=== PATIENT | male | born 1960 | race Caucasian/White ===

== ENCOUNTER 2022-10-06 15:22 | Outpatient (CLI) | payer BC, SELFPAY ==
--- NOTE | ~2022-10-06 | US_ITS ---
EXAMINATION: US soft tissue UE RT DATE: 10/06/2022 16:02 INDICATION: Nodules at the right second and third digits TECHNIQUE: Multiple grayscale and Doppler ultrasound images of the region of concern at the right trinh d the level of the distal metacarpals were obtained. COMPARISON: None FINDINGS: The relatively similar appearing very hypoechoic lesions at the dorsal aspect of the second and third proximal phalanges. The lesions demonstrate multiple tiny internal echogenic foci but with prominent posterior acoustic enhancement cystic lesions with internal echogenic material estimate. The lesion dorsal to the second proximal phalanx measures 9 x 9 x 6 mm and is situated between the skin surface and the underlying extensor tendon. The lesion posterior to the third middle phalanx has a bilobed/pe anut-shaped configuration measuring 1.3 cm proximal to distal and 7 x 5 mm in maximal transaxial dime nsions. It is also centered between the skin surface and the deeper extensor tendon. The lesions do n ot appear to surround the extensor tendons as would be expected for fluid in the tendon sheaths. No d iscernible neck extending to the joint space. There is no evident internal vascular flow at either le miri on color Doppler. IMPRESSION: 1. A couple small complex appearing cystic lesions along the dorsal aspect of the second and third pr oximal phalanges with most likely differential including tendon sheath cysts, ganglion cysts and locu lated tenosynovitis. Abscess or hematoma could also be included in the appropriate clinical setting. Reviewed, dictated and finalized at location A. IMPRESSION: 1. A couple small complex appearing cystic lesions along the dorsal aspect of t he second and third proximal phalanges with most likely differential including tendon sheath cysts, ganglion cysts and loculated tenosynovitis. Abscess or hem atoma could also be included in the appropriate clinical setting.
== END 2022-10-06 15:23 | disposition home or self-care (01) ==
PROVIDERS: PCP Family Medicine; Visit Provider Physician Assistant
DX: R22.31 Localized swelling, mass and lump, right upper limb (principal)
CPT/HCPCS: 76882

== ENCOUNTER 2025-03-24 11:43 | Observation (INO) | payer OTHER, SELFPAY ==
[2025-03-24] VITALS (13 sets, daily range): BP systolic 108–193; BP diastolic 72–132; PULSE 83–98; RESP 14–20; TEMP 36–36.9; O2SAT 96–100; BMI 29.5
--- NOTE | ~2025-03-24 | CT_ITS ---
EXAMINATION: CT abdomen pelvis wo con, 03/24/2025 14:40 CDT HISTORY: L flank to LLQ pain; h/o stones COMPARISON: No comparisons available. TECHNIQUE: CT scan of the abdomen and pelvis was performed without IV contrast. One or more of the following dose reduction techniques were used: automated exposure control, adjustment of the mA and/or kV according to patient size, use of iterative reconstruction technique. Unless otherwise stated, incidental findings do not require dedicated follow up imaging FINDINGS: CT abdomen: LUNG BASES: The lung bases are clear. The visualized portions of the heart and pericardium are unremarkable. LIVER: Mild hepatic steatosis. SPLEEN: Unremarkable, no splenomegaly. KIDNEYS: Right Kidney: Right kidney renal calculi the largest mid pole 4 x 5 mm, mild hydronephrosis and hydroureter degenerative obstructing proximal ureteral calculus measuring 4 x 5 x 4 mm. Left Kidney: Left kidney severe hydronephrosis and hydroureter, calculus mid pole 3 mm with obstructing mid ureteral calculus measuring 4 x 3 x 4 mm. Within the distal left ureter there is a second calculus measuring 4 x 5 x 5 mm. ADRENAL GLANDS: Unremarkable. PANCREAS: Unremarkable. GALLBLADDER/BILIARY: Unremarkable. No biliary dilatation. STOMACH AND ESOPHAGUS: Visualized stomach and esophagus within normal limits. BOWEL/MESENTERY: Moderate fecal content. No colitis or diverticulitis. Appendix normal. Mesentery normal. No thickening or dilated loops of small bowel. ADENOPATHY/RETROPERITONEUM: No lymphadenopathy. AORTA/VASCULATURE: Normal caliber aorta. FREE FLUID OR FREE AIR: No free fluid.. CT pelvis: SOLID ORGANS/REPRODUCTIVE: Prostate enlarged correlate with PSA. BLADDER: Within normal limits. OSSEOUS STRUCTURES: No acute osseous abnormality.No suspicious lesions. OVERLYING SOFT TISSUES: Unremarkable. IMPRESSION: 1. Bilateral obstructive uropathy Reviewed, dictated and finalized at location P.
--- NOTE | ~2025-03-24 | XR_ITS ---
EXAMINATION: XR retrograde pyelo w/stent BI DATE: 03/24/2025 17:35 INDICATION: Bilateral obstructive uropathy TECHNIQUE: 5 fluoroscopic images of the abdomen and pelvis were obtained during procedure performed by 03/25/2025. Radiologist was not present for the imaging or procedure. The amount of fluoroscopy time used during this procedure was 1.3 minutes. Total DAP was 1.53 mGym^2. COMPARISON: CT dated 03/24/2025 FINDINGS: No change in position of stones in the proximal right ureter and distal left ureter can be seen on the clipper operator imaging. Subsequent images demonstrate cannulation and retrograde contrast injection into the bilateral renal collecting systems which appears normal on the right than with mild hydronephrosis on the left. There is been placement of bilateral intraureteral stents the proximal loops of each are positioned within the bilateral renal pelvises. IMPRESSION: 1. Bilateral ureteral stones with interval placement of bilateral internal ureteral stents which are in expected position. It is unclear whether the ureteral stones have been removed and would correlate with procedure note for further detail. Reviewed, dictated and finalized at location A. IMPRESSION: 1. Bilateral ureteral stones with interval placement of bilateral internal uret eral stents which are in expected position. It is unclear whether the ureteral stones have been removed and would correlate with procedure note for further de tail.
--- NOTE | 2025-03-24 13:59 | ED.ABDPAIN ---
HPI - Abdominal Pain General Chief Complaint: Abdominal Pain Stated Complaint: abd pain since , constipation Time Seen by Provider: 03/24/25 13:46 History of Present Illness HPI narrative: Since , patient has been having pain to her his left back going to his groin, feels like kidney stones, he has been trying keep hydrated, but he has also been having nausea and not been able have a bowel movement. Related Data Allergies Allergy/AdvReac Type Severity Reaction Status Date / Time hydrochlorothiazide Allergy Unknown cough/lip Verified 03/24/25 13:48 (Zestoretic) swelling lisinopril Allergy Unknown cough/lip Verified 03/24/25 13:48 swelling Review of Systems Review of Systems: All systems reviewed & are unremarkable except as noted in HPI and below PMFSH Past Medical History Medical History History of angioedema HLD (hyperlipidemia) Diabetes mellitus Family History Family History Grandparent Diabetes mellitus Sibling Diabetes mellitus Father Depression Family history of suicide, Onset Age: 25 Mother Patient's mother is in good health Social History Social History Smoking packs per day: 1 Smoking cigarettes per day: 20.0 Years smoked: 25 Smoking pack-years: 25.00 Smoking status: Former smoker Tobacco type: cigarettes Smoking end date: 10/14/24 Alcohol intake: current Drinks per week: 4 Substance use: never Substance use type: does not use Do You Feel Safe in your Home?: Yes Lack of Transportation: No Lack of Food: Never True Current Housing: I Have Housing Concerned About Future Housing: No Difficulty Paying Gas/Electric Bills: No Difficulty Paying for Meds: No Currently Unemployed: No Education: Don't Know Difficulty w/ Childcare or Family Care: No Living arrangements: alone Occupation/Education: occupation Gender identity (if verbalized by the patient): Male Sexual Orientation (if Verbalized by the Patient): Straight or Heterosexual Exam Narrative: EXAMINATION OF ORGAN SYSTEMS/BODY AREAS: Constitutional: Vital signs per nursing GENERAL: Appears quite uncomfortable from pain HEAD: Normal with no signs of head trauma. EYES: EOMI, conjunctiva normal ENT: Hearing grossly intact LUNGS: Nonlabored breathing. HEART: [Regular rate and rhythm] ABD: [Soft], tender to palpation left lower quadrant EXT: Normal range of motion SKIN: [No rashes or lesions.] NEURO: [Alert and oriented x 3. No gross focal sensory or strength deficits.] PSYCH: Normal affect Course Vital Signs Vital signs: Vital Signs Temperature 97.8 F 03/24/25 11:48 Pulse Rate 97 03/24/25 11:48 Respiratory Rate 20 03/24/25 11:48 Blood Pressure 166/100 H 03/24/25 11:48 Pulse Oximetry 100 03/24/25 11:48 Oxygen Delivery Room Air 03/24/25 11:48 Temperature 97.8 F 03/24/25 11:48 Pulse Rate 83 03/24/25 15:04 Respiratory Rate 15 03/24/25 15:04 Blood Pressure 192/132 H 03/24/25 15:04 Pulse Oximetry 100 03/24/25 15:04 Oxygen Delivery Room Air 03/24/25 11:48 MDM - Abdominal Pain MDM Narrative Medical decision making narrative: Patient presenting here with left flank pain going to the lower abdomen, has history of kidney stones and this feels similar. Also having some nausea constipation. I do see stone left mid ureter causing hydroureter and hydronephrosis, despite pain medicine patient is still having significant pain, spine I do feel he will need to be admitted for pain control and intervention, discussed with urologist who will see the patient. Discussed with hospitalist for admission I discussed with patient and family the plan they are comfortable CT does show bilateral obstructive uropathy, started on antibiotics, urologist is updated. Lab Data 03/24/25 13:58 03/24/25 13:58 Labs: Lab Results 03/24/25 03/24/25 Range/Units 13:46 13:58 WBC 14.9 H (4.5-10.0) K/mm3 RBC 5.75 (4.6-6.20) M/mm3 Hgb 17.2 (14.0-18.0) g/dL Hct 48.5 (42.0-52.0) % MCV 84.3 (80-100) fl MCH 29.9 (26-34) pg MCHC 35.5 (32-36) g/dl RDW 11.9 (11.5-14.5) % Plt Count 247 (150-375) k/mm3 MPV 10.0 (7.4-10.4) fl Immature Gran % (Auto) 0.4 (0-0.5) % Neut % (Auto) 86.9 H (45.5-73.1) % Lymph % (Auto) 7.0 L (18.3-44.2) % [place] % (Auto) 5.2 (2.6-8.5) % Eos % (Auto) 0.3 (0-4.4) % Baso % (Auto) 0.2 (0.2-1.2) % Lymph # (Auto) 1.05 (0.9-3.2) K/mm3 [place] # (Auto) 0.8 H (0.1-0.6) K/mm3 Eos # (Auto) 0.0 (0-0.3) K/mm3 Baso # (Auto) 0.0 (0.0-0.1) K/mm3 Abs Immat Gran (auto) 0.06 H (0.00-0.031) K/mm3 Absolute Neuts (auto) 13.0 H (1.3-6.7) K/mm3 Absolute Nucleated RBC 0.000 (0.0-0.012) K/mm3 Nucleated RBC % 0.0 (0.0-0.2) % Sodium 135 L (137-145) mmol/L Potassium 4.3 (3.4-5.0) mmol/L Chloride 100 (98-107) mmol/L Carbon Dioxide 23 (22-30) mmol/L Anion Gap 12 (4-12) mmol/L BUN 19 (9-20) mg/dL Creatinine 1.19 (0.7-1.3) mg/dL Estim Creat Clear Calc 65 ml/min Estimated GFR > 60 (59 - ) Glucose 156 H (65-110) mg/dL POC Capillary Glucose 159 H (65-105) mg/dl Calcium 10.0 (8.4-10.2) mg/dL Total Bilirubin 0.7 (0.2-1.3) mg/dL AST 30 (17-59) U/L ALT 28 (6-50) U/L Alkaline Phosphatase 84 (38-126) U/L Total Protein 9.0 H (6.3-8.2) g/dL Albumin 4.9 (3.5-5.1) g/dL Lipase 403 H (23-300) U/L Urine Color Yellow (Yellow) Urine Appearance Clear (Clear) Urine pH 5.5 (5.0-9.0) Ur Specific [place] 1.035 (1.001-1.035) Urine Protein Trace (Negative) mg/dL Urine Glucose (UA) 3+ H (Negative) mg/dL Urine Ketones Trace H (Negative) mg/dL Ur Blood (Man) 3+ H (Negative) Urine Nitrate Negative (Negative) Urine Bilirubin Negative (Negative) Urine Urobilinogen 0.2 (<2.0) mg/dL Leukocyte Esterase Rfl Negative (Negative) GEOR[place]IE/UL Urine RBC >100 H (0-2) /hpf Urine WBC 0-5 (0-3) /hpf Ur Squamous Epith Cells None seen (Few) /hpf Urine Bacteria None seen /hpf Urine Casts 0-2 Imaging Data Radiologist's impression: ITS Impressions Abdomen/Pelvis CT 03/24/25 15:19 IMPRESSION: 1. Bilateral obstructive uropathy Discharge Plan Discharge Clinical Impression: Acute bilateral obstructive uropathy Patient Disposition: Still a Patient Condition: Stable Patient Language: Macanese Prescriptions: No Action metformin 500 mg tablet extended release 24 hr 1,000 mg PO DAILY Qty: 360 2RF pravastatin 20 mg tablet See Rx Instructions .ROUTE .COMPLEX Qty: 90 3RF Dose Instruction: TAKE 1 TABLET BY MOUTH EVERYDAY AT BEDTIME Rx Instructions: TAKE 1 TABLET BY MOUTH EVERYDAY AT BEDTIME tirzepatide 10 mg/0.5 mL pen injector 10 mg subcut WEEKLY Qty: 6 1RF fluticasone propionate 50 mcg/actuation spray,suspension 2 spray intranasal DAILY Qty: 16 3RF Rx Instructions: administer into each nostril bupropion HCl 150 mg tablet extended release 24 hr See Rx Instructions .ROUTE .COMPLEX Qty: 90 2RF Dose Instruction: TAKE 1 TABLET BY MOUTH EVERY DAY IN THE MORNING Rx Instructions: TAKE 1 TABLET BY MOUTH EVERY DAY IN THE MORNING losartan 50 mg tablet 50 mg PO DAILY Qty: 90 2RF metoprolol succinate 100 mg tablet extended release 24 hr See Rx Instructions .ROUTE .COMPLEX Qty: 90 2RF Dose Instruction: TAKE 1 TABLET BY MOUTH EVERY DAY Rx Instructions: TAKE 1 TABLET BY MOUTH EVERY DAY Follow-up/Referrals: Corbin Wallace MD [Primary Care Provider, [facility]]
[2025-03-24] MEDS: ONDANSETRON INJ 4 MG/2 ML VIAL IV PUSH (14:02)
[2025-03-24 14:04] LABS: Hematocrit 48.5 % (42.0-52.0); Hemoglobin 17.2 g/dL (14.0-18.0); Immature Granulocyte Percent A 0.4 % (0-0.5); Lymphocytes Absolute Auto 1.05 K/mm3 (0.9-3.2); Mean Corpuscular HGB Conc 35.5 g/dl (32-36); Mean Corpuscular Hemoglobin 29.9 pg (26-34); Mean Corpuscular Volume 84.3 fl (80-100); Nucleated Red Blood Cells Absolute Auto 0.000 K/mm3 (0.0-0.012); Nucleated Red Blood Cells Perc 0.0 % (0.0-0.2); Platelet Count Result 247 k/mm3 (150-375); Red Blood Count 5.75 M/mm3 (4.6-6.20); White Blood Count 14.9 K/mm3 (4.5-10.0)
[2025-03-24] MEDS: MORPHINE SULFATE (*CRX) 4 MG/ML INJ IV PUSH (14:06)
--- OUTSIDE RECORDS SUMMARY | 2025-03-24 14:06 | XMS_ITS | Clinical Summary ---
Author Organization [facility] Address [address] [place] [address] Phone Care Team Providers Care Global Regulatory Lead Name Role Phone Unavailable Primary Care Provider Unavailabl e Allergies No known active allergies Medications metoprolol succinate (TOPROL XL) 100 mg Extended Release 24 hour tablet Take 100 mg by mouth daily. Active cyanocobalamin 1,000 mcg Tablet Take 1,000 mcg by mouth daily. Active buPROPion HCl (WELLBUTRIN SR) 150 mg Sustained Release 12 hour tablet Take 150 mg by mouth 2 times daily. Active losartan (COZAAR) 50 mg tablet Take 50 mg by mouth daily. Active metFORMIN (GLUCOPHAGE) 500 mg tablet Take 500 mg by mouth 2 times daily with meals. Active Active Problems Problem Noted Date Diagnosed Date Hep C w/o coma, chronic 12/31/2015 Family History Medical History Relation Name Comments Celiac Disease Neg Hx Colon Cancer Neg Hx Colon Polyps Neg Hx Crohn's Disease Neg Hx GERD Neg Hx Gastric Cancer Neg Hx Inflammatory Bowel Disease Neg Hx Kidney Disease Neg Hx Pancreatic Cancer Neg Hx Rectal Cancer Neg Hx Stomach Cancer Neg Hx Ulcerative Colitis Neg Hx Ulcers Neg Hx Social History Tobacco Use Types Packs/Day Years Used Date Smoking Tobacco: Every Day Cigarettes Smokeless Tobacco: Never Alcohol Use Standard Drinks/Week Comments No 0 (1 standard drink = 0.6 oz pur e alcohol) socially Sex and Gender Information Value Date Recorded Sex Assigned at Not on file Legal Sex Male 8:17 AM CDT Gender Identity Not on file Sexual Orientation Not on file Last Filed Vital Signs Vital Sign Reading Time Taken Comments Blood Pressure 134/89 04/09/2016 12:15 PM CDT Pulse 61 04/09/2016 12:15 PM CDT Temperature 36.9 C (98.4 F) 04/09/2016 6:26 AM CDT Respiratory Rate 16 04/09/2016 12:15 PM CDT Oxygen Saturation 97% 04/09/2016 12:15 PM CDT Inhaled Oxygen Concentration - - Weight 102.1 kg (225 lb) 04/09/2016 6:26 AM CDT Height 180.3 cm (5' 11) 04/09/2016 6:26 AM CDT Body Mass Index 31.38 04/09/2016 6:26 AM CDT Plan of Treatment Health Maintenance Due Date Last Done Comments DTAP/TDAP/TD VACCINES (1 - Tdap) 09/30/1979 COLORECTAL SCREENING 2005 Colorectal Cancer Screening 2005 FIT-DNA Q 3 years 2005 FIT/FOBT Q 1 year 2005 Flex Sig/CT Colonography Q 5 years 2005 ZOSTER VACCINE (1 of 2) 2010 RSV VACCINE (60+ or ) (1 - Risk 60-74 years 1-dose series) 2020 INFLUENZA VACCINE (#1) [address] [facility] BLUE ACCESS/TRUE BLUE PPO
--- OUTSIDE RECORDS SUMMARY | 2025-03-24 14:06 | XMS_ITS | Clinical Summary ---
Author Organization [facility] Address [address] [place] [address] Care Team Providers Care Director Digital Name Role Phone Alanna Grove MD Primary Care Provider [phone] Source Comments [facility],non-owned Affiliates and Associated Physician Practices is amultiple site organization consisting of ambulatory clinics and hospital sitesin [place], [place], [place] and [place]. This disclosure is being madepursuant to the Care Everywhere program and may not contain all information available regarding this patient. Last updated 18.[facility] Medications * Be aware that medications may not be up to date on this document. Alwaysverify current medications with the patient. buPROPion SR 12hr (WELLBUTRIN-SR) 150 MG tablet Take 150 mg by mouth. 04/30/2016 Active vitamin b-12 (CYANCOBALAMIN) 1000 MCG tablet cr Take 1,000 mcg by mouth. 04/30/2016 Active losartan (COZAAR) 50 MG tablet Take 50 mg by mouth. 04/30/2016 Active metFORMIN (GLUCOPHAGE) 500 MG tablet Take 500 mg by mouth. 04/30/2016 Active metoprolol succinate XL 24hr (TOPROL XL) 100 MG tablet Take 100 mg by mouth. 04/30/2016 Active Active Problems Problem Noted Date Diagnosed Date Chronic viral hepatitis C 04/30/2016 Essential (primary) hypertension 04/30/2016 Type 2 diabetes mellitus without complications 1 06/30/2015 Overview (03/20/2025): IMO 09/19/2024 IMO 03/20/2025 Major depressive disorder, single episode 2015 Social History Tobacco Use Types Packs/Day Years Used Date Smoking Tobacco: Former Cigarettes Q uit: 09/24/2016 Smokeless Tobacco: Never Alcohol Use Standard Drinks/Week Comments No 0 (1 standard drink = 0.6 oz pur e alcohol) Sex and Gender Information Value Date Recorded Sex Assigned at Not on file Legal Sex Male 5:35 PM TREATER Gender Identity Not on file Sexual Orientation Not on file Last Filed Vital Signs Vital Sign Reading Time Taken Comments Blood Pressure 143/101 12/10/2016 8:08 AM CDT Pulse 65 12/10/2016 8:08 AM CDT Temperature 36.7 C (98 F) 07/23/2016 8:31 AM TREATER Respiratory Rate 16 12/10/2016 8:08 AM CDT Oxygen Saturation 99% 07/23/2016 8:31 AM TREATER Inhaled Oxygen Concentration - - Weight 112 kg (247 lb) 12/10/2016 8:08 AM CDT Height 180.3 cm (5' 11) 12/10/2016 8:08 AM CDT Body Mass Index 34.45 12/10/2016 8:08 AM CDT Plan of Treatment Health Maintenance Due Date Last Done Comments COLOGUARD (AGES 45-75) - COLON CA SCREENING 1960 COLON MONITORING 1960 COLONOSCOPY - COLON CA SCREENING 1960 CT COLONOGRAPHY - COLON CA SCREENING 1960 Colorectal Cancer Screening 1960 FIT - COLON CA SCREENING 1960 FLEX SIG - COLON CA SCREENING 1960 LIPID TESTING 1960 HIV SCREENING 09/30/1975 DTAP/TDAP/TD VACCINES (1 - Tdap) 09/30/1979 PNEUMOCOCCAL VACCINE 50+ (1 of 1 - PCV) 2010 ZOSTER VACCINE (1 of 2) 2010 DEPRESSION SCREENING 06/20/2024 COVID-19 VACCINE (1 - 2023- season) 2025 INFLUENZA VACCINE (#1) 2025 Respiratory Syncytial Virus (RSV) Vaccine Pt: or over 60 yrs (1 - 1-dose 75+ series) 09/30/2035 HEPATITIS C SCREENING Completed 12/10/2016 , 11/20/2016, 08/28/2016, Additional history exists HEPATITIS B VACCINE Aged Out No longe r eligible based on patient's age to complete this topic HIB VACCINE Aged Out No longer eligi ble based on patient's age to complete this topic HPV VACCINE Aged Out No longer eligi ble based on patient's age to complete this topic MENINGOCOCCAL (Group B) VACCINE SHARED DECISION-MAKING Aged Out No longer eligible based on patient's age to complete this topic MENINGOCOCCAL GROUPS A/C/Y/W VACCINE Aged Out No longer eligible based on patient's age to complete this topic Procedures Procedure Name Priority Date/Time Associated Diagnosis Comments HEPATITIS C REAL-TIME PCR QUANTASURE Routine 11/20/2016 11:18 AM CDT from Last 3 Months or Most Recently Relevant to Health Maintenance Results * HEPATITIS C REAL-TIME PCR QUANTASURE (11/20/2016 11:18 AM CDT) Hepatitis C Virus RNA PCR Quantitative <15 NOT DETECTED <15 IU/mL [facility]) Hepatitis C Virus RNA Log IU/mL <1.18 NOT DETECTED <1.18 Log IU/mL [facility]) See Note [facility]) Comment: The analytical performance characteristics of this assay have been determined by [employer]. The modifications have not been cleared or approved by the FDA. This assay has been validated pursuant to the CLIA regulations and is used for clinical purposes. This test was performed using the [employer](R)AmpliPrep/ [employer](R)TaqMan(R)HCV Test,v2.0. For more information on this test, go to: http://education.ZoomInfo/faq/JDY06o5 (This link is being provided for informational/ educational purposes only.) Test Performed at: [facility] [address] [place] [address] EVA BYRNES DO,MPH 11/20/2016 11:1 8 AM CDT 11/20/2016 11:18 AM CDT us Nadja Urbina PA-C LAB - SEROLOGY ORDERABLES Final Result [facility] (U) [phone] from Last 3 Months or Most Recently Relevant to Health Maintenance Insurance [employer] Care Teams Director Digital Relationship Specialty Start Date End Date Alanna Grove MD [address] [place] [address] PCP - General 01/17/18
[2025-03-24] MEDS: LACTATED RINGERS 1,000 ML 999 ML IV CONT (14:08)
[2025-03-24 14:09] LABS: Add Urine Microscopic? YES; Appearance Urine Clear (Clear); Glucose Urine UA 3+ mg/dL (Negative); Leukocyte Esterase Ur Negative LEU/UL (Negative); Nitrate Urine Negative (Negative); Non Pathogenic Casts 0-2; Specific Grav Ur 1.035 (1.001-1.035)
[2025-03-24 14:22] LABS: Alanine Aminotransferase 28 U/L (6-50); Albumin Level 4.9 g/dL (3.5-5.1); Alkaline Phosphatase 84 U/L (38-126); Anion Gap 12 mmol/L (4-12); Aspartate Amino Transferase 30 U/L (17-59); Bilirubin,Total 0.7 mg/dL (0.2-1.3); Blood Urea Nitrogen 19 mg/dL (9-20); Calcium 10.0 mg/dL (8.4-10.2); Carbon Dioxide 23 mmol/L (22-30); Chloride 100 mmol/L (98-107); Estimated CRCL calculation 65 ml/min; Estimated Glomerular Filt Rate > 60; Glucose 156 mg/dL (65-110); Lipase 403 U/L (23-300); Potassium 4.3 mmol/L (3.4-5.0); Sodium 135 mmol/L (137-145); Total Protein 9.0 g/dL (6.3-8.2)
[2025-03-24] MEDS: HYDROmorphone HCL INJ (*CRX) 1 MG/ML SYR 0.5 MG IV PUSH (15:14)
[2025-03-24] MEDS: KETOROLAC 15 MG/ML VIAL (*BKC) IV PUSH (15:16)
--- NOTE | 2025-03-24 15:18 | P.CONUR_ITS ---
Assessment and Plan Assessment and plan (1) Renal colic on left side: Code(s): N23 - Unspecified renal colic Status: Acute Assessment and Plan: 2 left ureteral stone and obstruction and severe renal colic will likely need intervention left stent and left ureteroscopy discussed--will keep NPO for tomorrow Labs OK and no signs of infection (2) Nephrolithiasis: Code(s): N20.0 - Calculus of kidney Status: Acute Assessment and Plan: right renals stone will offer right renal ESWL as outpatient Urology Consult Note HPI Date Seen: 03/24/25 Primary Care Provider: Corbin Wallace MD Consult Narrative Narrative: Wilfred Rico is a 64 year old male left renal colic and CT with 2 ureteral stones one mid and one distal---5mm approximately and left hydronephrosis. No fevers and labs OK. Pain is difficult to control. Another stone in right kidney non obstructive--5mm. Review of Systems 2 Review of Systems: All systems reviewed & are unremarkable except as noted in HPI and below Genitourinary: Genitourinary: Reports no additional male genitourinary complaints and Denies hematuria [facility] Past Medical History Medical History History of angioedema HLD (hyperlipidemia) Diabetes mellitus Family History Family History Grandparent Diabetes mellitus Sibling Diabetes mellitus Father Depression Family history of suicide, Onset Age: 25 Mother Patient's mother is in good health Social History Social History Smoking packs per day: 1 Smoking cigarettes per day: 20.0 Years smoked: 25 Smoking pack-years: 25.00 Smoking status: Former smoker Tobacco type: cigarettes Smoking end date: 10/14/24 Alcohol intake: current Drinks per week: 4 Substance use: never Substance use type: does not use Do You Feel Safe in your Home?: Yes Lack of Transportation: No Lack of Food: Never True Current Housing: I Have Housing Concerned About Future Housing: No Difficulty Paying Gas/Electric Bills: No Difficulty Paying for Meds: No Currently Unemployed: No Education: Don't Know Difficulty w/ Childcare or Family Care: No Living arrangements: alone Occupation/Education: occupation Gender identity (if verbalized by the patient): Male Sexual Orientation (if Verbalized by the Patient): Straight or Heterosexual Meds Home Medications and Allergies Home Medications ?Medication ?Instructions ?Recorded ?Confirmed ?Type fluticasone propionate 50 2 spray intranasal DAILY #16 grams 03/21/23 03/01/25 Rx mcg/actuation nasal spray,suspension bupropion HCl 150 mg 24 hr tablet, See Rx Instructions .Route 08/10/24 03/01/25 Rx extended release .COMPLEX #90 tabs losartan 50 mg tablet 50 mg PO DAILY #90 tabs 07/2203/01/25 Rx metformin 500 mg tablet,extended 1,000 mg (2 x 500 mg) PO DAILY 08/10/24 03/01/25 Rx release 24 hr #360 tabs metoprolol succinate 100 mg See Rx Instructions .Route 08/10/24 03/01/25 Rx tablet,extended release 24 hr .COMPLEX #90 tabs pravastatin 20 mg tablet See Rx Instructions .Route 0 08/10/24 03/01/25 Rx .COMPLEX #90 tabs tirzepatide 10 mg/0.5 mL 10 mg (0.5 mL) subcut WEEKLY #6 mL 03/01/25 03/01/25 Rx subcutaneous pen injector Allergies Allergy/AdvReac Type Severity Reaction Status Date / Time hydrochlorothiazide Allergy Unknown cough/lip Verified 03/24/25 13:48 (Zestoretic) swelling lisinopril Allergy Unknown cough/lip Verified 03/24/25 13:48 swelling Vital Signs Vital Signs - 24 hr 03/24/25 11:48 03/24/25 13:48 03/24/25 15:04 Temperature 36.6 C Pulse Rate 97 85 83 Respiratory Rate 20 17 15 Blood Pressure 166/100 H 193/111 H 192/132 H Pulse Oximetry 100 99 100 Oxygen Delivery Room Air Exam 2 Narrative: left renal colic symptoms Const: General: healthy appearing and well developed HENMT: Head: normal to inspection Resp: Effort & Inspection: normal respiratory effort : General: Yes bladder normal to inspection, Yes bladder normal to palpation and Yes CVA tenderness on the left (extending to pelvis) Results Labs 03/24/25 13:58 03/24/25 13:58 Labs: Short CBC 03/24/25 Range/Units 13:58 WBC 14.9 H (4.5-10.0) K/mm3 Hgb 17.2 (14.0-18.0) g/dL Hct 48.5 (42.0-52.0) % Plt Count 247 (150-375) k/mm3 BMP 03/24/25 13:58 Sodium 135 L Potassium 4.3 Chloride 100 Carbon Dioxide 23 BUN 19 Creatinine 1.19 Glucose 156 H Calcium 10.0 Liver Function 03/24/25 Range/Units 13:58 Total Bilirubin 0.7 (0.2-1.3) mg/dL AST 30 (17-59) U/L ALT 28 (6-50) U/L Alkaline Phosphatase 84 (38-126) U/L Albumin 4.9 (3.5-5.1) g/dL Urine 03/24/25 Range/Units 13:58 Urine Color Yellow (Yellow) Urine Appearance Clear (Clear) Urine pH 5.5 (5.0-9.0) Ur Specific [place] 1.035 (1.001-1.035) Urine Protein Trace (Negative) mg/dL Urine Glucose (UA) 3+ H (Negative) mg/dL
[2025-03-24] MEDS: cefTRIAXone 1 GM in SODIUM CHLORIDE 0.9% IV 50 ML 100 ML IVPB (15:50)
--- NOTE | 2025-03-24 16:56 | P.PNAN_ITS ---
Anes - Initial Pre Proc Eval Procedure: Operation Date: 03/24/25 17:00 Proposed Procedures p Cysto, RPG, Stone Ext, Stent Placement - Brandon Grier MD Date/Time: 03/24/25 16:56 Surgeon: Eriberto Michele MD Pre Op Diagnosis: Kidney stone Patient Data Age: 64 Gender: M Height: 1.78 m Weight: 96 kg Last Vital Signs Temp 97.8 F 03/24/25 11:48 Pulse 98 03/24/25 15:51 Resp 14 03/24/25 15:51 BP 158/103 H 03/24/25 15:51 Pulse Ox 97 03/24/25 15:51 O2 Del Method Room Air 03/24/25 11:48 Allergies Allergy/AdvReac Type Severity Reaction Status Date / Time hydrochlorothiazide Allergy Unknown cough/lip Verified 03/24/25 13:48 (Zestoretic) swelling lisinopril Allergy Unknown cough/lip Verified 03/24/25 13:48 swelling Home Medications ?Medication ?Instructions ?Recorded ?Confirmed ?Type fluticasone propionate 50 2 spray intranasal DAILY #16 grams 03/21/23 03/01/25 Rx mcg/actuation nasal spray,suspension bupropion HCl 150 mg 24 hr tablet, See Rx Instructions .Route 08/10/24 03/01/25 Rx extended release .COMPLEX #90 tabs losartan 50 mg tablet 50 mg PO DAILY #90 tabs 07/2203/01/25 Rx metformin 500 mg tablet,extended 1,000 mg (2 x 500 mg) PO DAILY 08/10/24 03/01/25 Rx release 24 hr #360 tabs metoprolol succinate 100 mg See Rx Instructions .Route 08/10/24 03/01/25 Rx tablet,extended release 24 hr .COMPLEX #90 tabs pravastatin 20 mg tablet See Rx Instructions .Route 0 08/10/24 03/01/25 Rx .COMPLEX #90 tabs tirzepatide 10 mg/0.5 mL 10 mg (0.5 mL) subcut WEEKLY #6 mL 03/01/25 03/01/25 Rx subcutaneous pen injector Laboratory Tests 03/24/25 03/24/25 13:46 13:58 WBC 14.9 H K/mm3 (4.5-10.0) RBC 5.75 M/mm3 (4.6-6.20) Hgb 17.2 g/dL (14.0-18.0) Hct 48.5 % (42.0-52.0) MCV 84.3 fl (80-100) MCH 29.9 pg (26-34) MCHC 35.5 g/dl (32-36) RDW 11.9 % (11.5-14.5) Plt Count 247 k/mm3 (150-375) MPV 10.0 fl (7.4-10.4) Immature Gran % (Auto) 0.4 % (0-0.5) Neut % (Auto) 86.9 H % (45.5-73.1) Lymph % (Auto) 7.0 L % (18.3-44.2) [place] % (Auto) 5.2 % (2.6-8.5) Eos % (Auto) 0.3 % (0-4.4) Baso % (Auto) 0.2 % (0.2-1.2) Lymph # (Auto) 1.05 K/mm3 (0.9-3.2) [place] # (Auto) 0.8 H K/mm3 (0.1-0.6) Eos # (Auto) 0.0 K/mm3 (0-0.3) Baso # (Auto) 0.0 K/mm3 (0.0-0.1) Abs Immat Gran (auto) 0.06 H K/mm3 (0.00-0.031) Absolute Neuts (auto) 13.0 H K/mm3 (1.3-6.7) Absolute Nucleated RBC 0.000 K/mm3 (0.0-0.012) Nucleated RBC % 0.0 % (0.0-0.2) Sodium 135 L mmol/L (137-145) Potassium 4.3 mmol/L (3.4-5.0) Chloride 100 mmol/L (98-107) Carbon Dioxide 23 mmol/L (22-30) Anion Gap 12 mmol/L (4-12) BUN 19 mg/dL (9-20) Creatinine 1.19 mg/dL (0.7-1.3) Estim Creat Clear Calc 65 ml/min Estimated GFR > 60 (59 - ) Glucose 156 H mg/dL (65-110) POC Capillary Glucose 159 H mg/dl (65-105) Calcium 10.0 mg/dL (8.4-10.2) Total Bilirubin 0.7 mg/dL (0.2-1.3) AST 30 U/L (17-59) ALT 28 U/L (6-50) Alkaline Phosphatase 84 U/L (38-126) Total Protein 9.0 H g/dL (6.3-8.2) Albumin 4.9 g/dL (3.5-5.1) Lipase 403 H U/L (23-300) Urine Color Yellow (Yellow) Urine Appearance Clear (Clear) Urine pH 5.5 (5.0-9.0) Ur Specific [place] 1.035 (1.001-1.035) Urine Protein Trace mg/dL (Negative) Urine Glucose (UA) 3+ H mg/dL (Negative) Urine Ketones Trace H mg/dL (Negative) Ur Blood (Man) 3+ H (Negative) Urine Nitrate Negative (Negative) Urine Bilirubin Negative (Negative) Urine Urobilinogen 0.2 mg/dL (<2.0) Leukocyte Esterase Rfl Negative [place]IE/UL (Negative) Urine RBC >100 H /hpf (0-2) Urine WBC 0-5 /hpf (0-3) Ur Squamous Epith Cells None seen /hpf (Few) Urine Bacteria None seen /hpf Urine Casts 0-2 Patient hx anesthesia problems: none Family hx anesthesia problems: none Results Review: All pre-operative results and documents have been reviewed as part of the pre- operative evaluation. [facility] Past Medical History Medical History History of angioedema HLD (hyperlipidemia) Diabetes mellitus Family History Family History Grandparent Diabetes mellitus Sibling Diabetes mellitus Father Depression Family history of suicide, Onset Age: 25 Mother Patient's mother is in good health Social History Social History Smoking packs per day: 1 Smoking cigarettes per day: 20.0 Years smoked: 25 Smoking pack-years: 25.00 Smoking status: Former smoker Tobacco type: cigarettes Smoking end date: 10/14/24 Alcohol intake: current Drinks per week: 4 Substance use: never Substance use type: does not use Do You Feel Safe in your Home?: Yes Lack of Transportation: No Lack of Food: Never True Current Housing: I Have Housing Concerned About Future Housing: No Difficulty Paying Gas/Electric Bills: No Difficulty Paying for Meds: No Currently Unemployed: No Education: Don't Know Difficulty w/ Childcare or Family Care: No Living arrangements: alone Occupation/Education: occupation Gender identity (if verbalized by the patient): Male Sexual Orientation (if Verbalized by the Patient): Straight or Heterosexual Anes - Eval Final PreProcedure Day of Procedure 03/24/25 16:56 Patient weight: obese Lungs: normal air movement Airway: Mallampati scale class II Neurological: alert and oriented Last oral intake: >/= 8 hours ASA classification: III Emergent: yes Anesthetic plan: proceed Anesthesia type and monitoring: general ETT and standard monitoring Results Review: All pre-operative results and documents have been reviewed as part of the pre-operative evaluation. Hyperlipidemia, DM fsbs 159, BMI 30, pt has been on GLP 1, ex smoker quit 09/2024. Informed Consent: The patient's anesthetic plan and its attendant risks and benefits were discussed with the patient/family/POA. Questions were solicited and answers provided to the satisfaction of the patient/family/POA.
--- NOTE | 2025-03-24 16:56 | WPDHPUPDATE1 ---
History and Physical Update Update Date/Time: 03/24/25 16:56 History and Physical has been reviewed, including an updated exam of the patient. He has bilateral ureteral stones with bilateral hydronephrosis and plan for cystoscopy and bilateral stenting. There are NO changes in the patient's condition. Risks, benefits, and alternatives have been discussed and questions answered. Patient agrees to proceed with procedure.
--- NOTE | 2025-03-24 17:03 | P.HP_ITS ---
H&P: HPI History of Present Illness Date/Time: 03/24/25 17:03 Chief Complaint: Left flank pain, bilateral ureteral obstructions with ureteral stones Narrative: This is a 64 year old male patient with a history of recurrent nephrolithiasis who presents with bilateral flank pain. The patient reports symptoms began three days ago on after work. The pain initially resolved but returned with severe intensity at approximately 4 a.m. this morning, prompting his presentation to the hospital. He describes the pain as bilateral, but predominantly on the left side. He denies any nausea or vomiting. He also re ports significant constipation, which he associates with his Mounjaro medication for diabetes, and has been taking stool softeners and Senna since without relief. Workup revealed bilateral ureteral stones with obstruction and hydronephrosis, worse on the left side with multiple stones throughout the course of the left ureter. He has since undergone emergent bilateral ureteral stent placement by the Urology service in the OR on 03/23. He reports his flank pain is now improving. His current complaints include burning with urination, which began after the procedure, ongoing hematuria, and persistent constipation. Review of Systems Review of Systems: All systems reviewed & are unremarkable except as noted in HPI and below PMFSH Past Medical History Medical History History of angioedema HLD (hyperlipidemia) Diabetes mellitus Family History Family History Grandparent Diabetes mellitus Sibling Diabetes mellitus Father Depression Family history of suicide, Onset Age: 25 Mother Patient's mother is in good health Social History Social History Smoking packs per day: 1 Smoking cigarettes per day: 20.0 Years smoked: 25 Smoking pack-years: 25.00 Smoking status: Former smoker Alcohol intake: current Drinks per week: 4 Substance use: never Substance use type: does not use Do You Feel Safe in your Home?: Yes Lack of Transportation: No Lack of Food: Never True Current Housing: I Have Housing Concerned About Future Housing: No Difficulty Paying Gas/Electric Bills: No Difficulty Paying for Meds: No Currently Unemployed: No Education: High School Diploma/GED Difficulty w/ Childcare or Family Care: No Living arrangements: alone Occupation/Education: occupation Gender identity (if verbalized by the patient): Male Sexual Orientation (if Verbalized by the Patient): Straight or Heterosexual Spiritual care concerns: No Meds Home Medications and Allergies Home Medications ?Medication ?Instructions ?Recorded ?Confirmed ?Type fluticasone propionate 50 2 spray intranasal DAILY #16 grams 03/21/23 03/24/25 Rx mcg/actuation nasal spray,suspension bupropion HCl 150 mg 24 hr tablet, See Rx Instructions .Route 08/10/24 03/24/25 Rx extended release .COMPLEX #90 tabs losartan 50 mg tablet 50 mg PO DAILY #90 tabs 07/2203/24/25 Rx metformin 500 mg tablet,extended 1,000 mg (2 x 500 mg) PO DAILY 08/10/24 03/24/25 Rx release 24 hr #360 tabs metoprolol succinate 100 mg See Rx Instructions .Route 08/10/24 03/24/25 Rx tablet,extended release 24 hr .COMPLEX #90 tabs pravastatin 20 mg tablet See Rx Instructions .Route 0 08/10/24 03/24/25 Rx .COMPLEX #90 tabs tirzepatide 10 mg/0.5 mL 10 mg (0.5 mL) subcut WEEKLY #6 mL 03/01/25 03/24/25 Rx subcutaneous pen injector Allergies Allergy/AdvReac Type Severity Reaction Status Date / Time hydrochlorothiazide Allergy Unknown cough/lip Verified 03/24/25 13:48 (Zestoretic) swelling lisinopril Allergy Unknown cough/lip Verified 03/24/25 13:48 swelling Vital Signs Vital Signs - 24 hr 03/24/25 11:48 03/24/25 13:48 03/24/25 15:04 Temperature 36.6 C Pulse Rate 97 85 83 Respiratory Rate 20 17 15 Blood Pressure 166/100 H 193/111 H 192/132 H Pulse Oximetry 100 99 100 Oxygen Delivery Room Air 03/24/25 15:51 03/24/25 16:56 Temperature 36.9 C Pulse Rate 98 96 Respiratory Rate 14 16 Blood Pressure 158/103 H 148/101 H Pulse Oximetry 97 99 Oxygen Delivery Exam Narrative: GENERAL: Well-appearing, well-nourished, and in no acute distress. HEAD: Normocephalic, atraumatic. ENT:? Mucous membranes moist. CHEST: Clear to auscultation.? No respiratory distress. HEART: Regular rate and rhythm. ? Normal peripheral pulses. ABDOMEN: Mild generalized tenderness soft palpation no guarding or rebound. Left CVA tenderness still present. EXTREMITIES: Normal range of motion. No peripheral edema. SKIN: Warm dry normal color NEURO: Alert and oriented x3. PSYCH: Normal mood and affect H&P: Results Labs Labs: Short CBC 03/24/25 Range/Units 13:58 WBC 14.9 H (4.5-10.0) K/mm3 Hgb 17.2 (14.0-18.0) g/dL Hct 48.5 (42.0-52.0) % Plt Count 247 (150-375) k/mm3 BMP 03/24/25 13:58 Sodium 135 L Potassium 4.3 Chloride 100 Carbon Dioxide 23 BUN 19 Creatinine 1.19 Glucose 156 H Calcium 10.0 Liver Function 03/24/25 Range/Units 13:58 Total Bilirubin 0.7 (0.2-1.3) mg/dL AST 30 (17-59) U/L ALT 28 (6-50) U/L Alkaline Phosphatase 84 (38-126) U/L Albumin 4.9 (3.5-5.1) g/dL Urine 03/24/25 Range/Units 13:58 Urine Color Yellow (Yellow) Urine Appearance Clear (Clear) Urine pH 5.5 (5.0-9.0) Ur Specific [place] 1.035 (1.001-1.035) Urine Protein Trace (Negative) mg/dL Urine Glucose (UA) 3+ H (Negative) mg/dL Pulse Oximetry SpO2 results: 97-99% on room air Attestation: I personally reviewed and interpreted this pulse oximetry as follows: Interpretation: No need for supplemental oxygenation at this time Imaging CT scan - abdomen: Radiologist's impression: EXAMINATION: CT abdomen pelvis wo con, 03/24/2025 14:40 CDT HISTORY: L flank to LLQ pain; h/o stones COMPARISON: No comparisons available. TECHNIQUE: CT scan of the abdomen and pelvis was performed without IV contrast. One or more of the following dose reduction techniques were used: automated exposure control, adjustment of the mA and/or kV according to patient size, use of iterative reconstruction technique. Unless otherwise stated, incidental findings do not require dedicated follow up imaging FINDINGS: CT abdomen: LUNG BASES: The lung bases are clear. The visualized portions of the heart and pericardium are unremarkable. LIVER: Mild hepatic steatosis. SPLEEN: Unremarkable, no splenomegaly. KIDNEYS: Right Kidney: Right kidney renal calculi the largest mid pole 4 x 5 mm, mild hydronephrosis and hydroureter degenerative obstructing proximal ureteral calculus measuring 4 x 5 x 4 mm. Left Kidney: Left kidney severe hydronephrosis and hydroureter, calculus mid pole 3 mm with obstructing mid ureteral calculus measuring 4 x 3 x 4 mm. Within the distal left ureter there is a second calculus measuring 4 x 5 x 5 mm. ADRENAL GLANDS: Unremarkable. PANCREAS: Unremarkable. GALLBLADDER/BILIARY: Unremarkable. No biliary dilatation. STOMACH AND ESOPHAGUS: Visualized stomach and esophagus within normal limits. BOWEL/MESENTERY: Moderate fecal content. No colitis or diverticulitis. Appendix normal. Mesentery normal. No thickening or dilated loops of small bowel. ADENOPATHY/RETROPERITONEUM: No lymphadenopathy. AORTA/VASCULATURE: Normal caliber aorta. FREE FLUID OR FREE AIR: No free fluid.. CT pelvis: SOLID ORGANS/REPRODUCTIVE: Prostate enlarged correlate with PSA. BLADDER: Within normal limits. OSSEOUS STRUCTURES: No acute osseous abnormality.No suspicious lesions. OVERLYING SOFT TISSUES: Unremarkable. IMPRESSION: 1. Bilateral obstructive uropathy Reviewed, dictated and finalized at location P. Assessment and Plan Assessment and plan (1) Acute bilateral obstructive uropathy: Code(s): N13.9 - Obstructive and reflux uropathy, unspecified Status: Acute Assessment and Plan: -Left ureteral obstruction with multiple ureteral stones and severe hydronephrosis -Right mid pole/upper ureteral obstruction with developing hydronephrosis -No UTI but hematuria and dysuria present per patient report -Bilateral ureteral stents placed by Urology in OR on 03/23/25--Emergent procedure due to bilateral obstruction -Repeat labs in AM -Patient states Urology expects to discharge in AM with outpatient stone extraction when stents removed (2) Renal colic on left side: Code(s): N23 - Unspecified renal colic Status: Acute Assessment and Plan: -Majority of pain was focused on left back/flank overlying left kidney -Pain started 3 days before admission but had improved then 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 (3) Constipation: Code(s): K59.00 - Constipation, unspecified Status: Acute Assessment and Plan: -Constipated despite Colace for 3 days and Senna yesterday -Add Senna Plus and one time dose of magnesium citrate (4) Type 2 diabetes mellitus with hyperglycemia: Qualifiers: Diabetes mellitus care home insulin use: without termite control service representative use Qualified Code(s): E11.65 - Type 2 diabetes mellitus with hyperglycemia Code(s): E11.65 - Type 2 diabetes mellitus with hyperglycemia Status: Chronic Assessment and Plan: -continue metformin -diabetic diet -ACHS fingerstick glucose with low dose SSI -Hemoglobin A1c 6.3 on 02/16/25 (5) Essential (primary) hypertension: Code(s): I10 - Essential (primary) hypertension Status: Chronic Assessment and Plan: -continue metoprolol and losartan, blood pressure stable (6) HLD (hyperlipidemia): Qualifiers: Hyperlipidemia type: mixed hyperlipidemia Qualified Code(s): E78.2 - Mixed hyperlipidemia Code(s): E78.5 - Hyperlipidemia, unspecified Status: Chronic Assessment and Plan: -continue pravastatin Quality VTE Prophylaxis VTE prophylaxis: mechanical ordered Hospitalist MIPS Advance Care Plan I have confirmed that the patient's Advanced Care Plan is present, code status is documented, or surrogate decision maker is listed in patient medical record.: Yes Medication Reconciliation I have utilized all available resources to obtain, update and review the patients current medications (includes all prescriptions, OTC, herbals, cannabis, and nutritional supplements).: Yes
[2025-03-24] MEDS: LACTATED RINGERS 1,000 ML 30 ML IV CONT (17:38)
--- NOTE | 2025-03-24 17:40 | P.OP_ITS ---
Procedure Note - Detailed Date of Procedure 03/24/25 Pre-op Diagnosis Bilateral ureteral stones Bilateral hydronephrosis Post-op Diagnosis Same (bilateral ureteral stones) Procedure Performed cystoscopy and bilateral ureteral stents Surgeon Brandon Grier MD Anesthesia General Indications Bilateral hydronephrosis Findings Bilateral ureteral stones Description of Procedure After consenting patient he was brought back to the operating room. A general anesthesia was completed. He was positioned lithotomy. Cystoscopy was completed. The bladder was normal. Prostate mildly enlarged. Bilateral retrograde pyelograms showed bilaterl ureteral stones---2 in left urete and one in proximal right. 6 burundian variable length stents were placed with good curls in bladder and renal pelvices. The bladder was emptied. Implants Bilateral 6 burundian ureteral stents Estimated Blood Loss 0 Complications None Disposition PACU
--- NOTE | 2025-03-24 18:27 | ADMGEN ---
This patient, Wilfred Rico, was admitted to 3 [facility] Surg Room 324-01. Patient/family oriented to hospital policies and general routines including ID bracelet, bed and alarms, visiting hours, pain management, procedures, bathroom and other care routines, personal items, smoking policy, room service/diet, and visiting hours. Information on how to activate the Rapid Response Team has been discussed. Patient/Family are encouraged to report perceived risks to care and to ask questions if they do not understand what they are told or what they should do.
[2025-03-24] MEDS: SENNA/DOCUSATE SODIUM TABLET 2 TAB PO (20:46)
[2025-03-25 04:34] VITALS: BP 160/101; PULSE 86; RESP 20; TEMP 36.7; O2SAT 97
[2025-03-25] MEDS: HYDROcodone/acetaminophen (*CRX) 5-325 MG TABLET 1 TAB PO ×2 (04:40→14:15)
[2025-03-25 06:37] LABS: Hematocrit 44.7 % (42.0-52.0); Hemoglobin 15.7 g/dL (14.0-18.0); Immature Granulocyte Percent A 0.6 % (0-0.5); Lymphocytes Absolute Auto 2.33 K/mm3 (0.9-3.2); Mean Corpuscular HGB Conc 35.1 g/dl (32-36); Mean Corpuscular Hemoglobin 30.2 pg (26-34); Mean Corpuscular Volume 86.0 fl (80-100); Nucleated Red Blood Cells Absolute Auto 0.000 K/mm3 (0.0-0.012); Nucleated Red Blood Cells Perc 0.0 % (0.0-0.2); Platelet Count Result 203 k/mm3 (150-375); Red Blood Count 5.20 M/mm3 (4.6-6.20); White Blood Count 10.6 K/mm3 (4.5-10.0)
[2025-03-25 06:57] LABS: Alanine Aminotransferase 19 U/L (6-50); Albumin Level 4.3 g/dL (3.5-5.1); Alkaline Phosphatase 72 U/L (38-126); Anion Gap 10 mmol/L (4-12); Aspartate Amino Transferase 25 U/L (17-59); Bilirubin,Total 0.7 mg/dL (0.2-1.3); Blood Urea Nitrogen 18 mg/dL (9-20); Calcium 9.2 mg/dL (8.4-10.2); Carbon Dioxide 24 mmol/L (22-30); Chloride 102 mmol/L (98-107); Estimated CRCL calculation 69 ml/min; Estimated Glomerular Filt Rate > 60; Glucose 125 mg/dL (65-110); Magnesium 2.2 mg/dL (1.6-2.3); Potassium 3.8 mmol/L (3.4-5.0); Sodium 136 mmol/L (137-145); Total Protein 7.5 g/dL (6.3-8.2)
[2025-03-25 07:57] VITALS: BP 162/110; PULSE 90; RESP 18; TEMP 36; O2SAT 97
--- NOTE | 2025-03-25 08:28 | P.PNAN_ITS ---
Anes - Prog Note Post-Op Date/Time: 03/25/25 08:28 Cardiovascular status: normal Respiratory status: normal Airway patency: baseline Mental status: baseline Post-Op hydration status: normal Vital Signs: Last Vital Signs Temp 36.0 C L 03/25/25 07:57 Pulse 90 03/25/25 07:57 Resp 18 03/25/25 07:57 BP 162/110 H 03/25/25 07:57 Pulse Ox 97 03/25/25 07:57 O2 Del Method Room Air 03/24/25 20:00 O2 Flow Rate 8 03/24/25 17:50 Pain Score (VAS): 1 I/O: Intake & Output 03/24/25 03/25/25 03/25/25 23:59 07:59 15:59 Intake Total 50 250 Output Total 550 200 Balance -500 50 Laboratory Tests 03/25/25 06:23 03/25/25 06:23 03/24/25 03/24/25 03/24/25 13:46 13:58 17:42 WBC 14.9 H RBC 5.75 Hgb 17.2 Hct 48.5 MCV 84.3 MCH 29.9 MCHC 35.5 RDW 11.9 Plt Count 247 MPV 10.0 Immature Gran % (Auto) 0.4 Neut % (Auto) 86.9 H Lymph % (Auto) 7.0 L [place] % (Auto) 5.2 Eos % (Auto) 0.3 Baso % (Auto) 0.2 Lymph # (Auto) 1.05 [place] # (Auto) 0.8 H Eos # (Auto) 0.0 Baso # (Auto) 0.0 Abs Immat Gran (auto) 0.06 H Absolute Neuts (auto) 13.0 H Absolute Nucleated RBC 0.000 Nucleated RBC % 0.0 Sodium 135 L Potassium 4.3 Chloride 100 Carbon Dioxide 23 Anion Gap 12 BUN 19 Creatinine 1.19 Estim Creat Clear Calc 65 Estimated GFR > 60 Glucose 156 H POC Capillary Glucose 159 H 123 H Calcium 10.0 Magnesium Total Bilirubin 0.7 AST 30 ALT 28 Alkaline Phosphatase 84 Total Protein 9.0 H Albumin 4.9 Lipase 403 H Urine Color Yellow Urine Appearance Clear Urine pH 5.5 Ur Specific [employer] 1.035 Urine Protein Trace Urine Glucose (UA) 3+ H Urine Ketones Trace H Ur Blood (Man) 3+ H Urine Nitrate Negative Urine Bilirubin Negative Urine Urobilinogen 0.2 Leukocyte Esterase Rfl Negative Urine RBC >100 H Urine WBC 0-5 Ur Squamous Epith Cells None seen Urine Bacteria None seen Urine Casts 0-2 03/24/25 03/25/25 03/25/25 22:20 06:23 07:30 WBC 10.6 H RBC 5.20 Hgb 15.7 Hct 44.7 MCV 86.0 MCH 30.2 MCHC 35.1 RDW 11.9 Plt Count 203 MPV 9.9 Immature Gran % (Auto) 0.6 H Neut % (Auto) 67.2 Lymph % (Auto) 22.0 [place] % (Auto) 8.4 Eos % (Auto) 1.3 Baso % (Auto) 0.5 Lymph # (Auto) 2.33 [place] # (Auto) 0.9 H Eos # (Auto) 0.1 Baso # (Auto) 0.1 Abs Immat Gran (auto) 0.06 H Absolute Neuts (auto) 7.1 H Absolute Nucleated RBC 0.000 Nucleated RBC % 0.0 Sodium 136 L Potassium 3.8 Chloride 102 Carbon Dioxide 24 Anion Gap 10 BUN 18 Creatinine 1.02 Estim Creat Clear Calc 69 Estimated GFR > 60 Glucose 125 H POC Capillary Glucose 109 H 123 H Calcium 9.2 Magnesium 2.2 Total Bilirubin 0.7 AST 25 ALT 19 Alkaline Phosphatase 72 Total Protein 7.5 Albumin 4.3 Lipase Urine Color Urine Appearance Urine pH Ur Specific [employer] Urine Protein Urine Glucose (UA) Urine Ketones Ur Blood (Man) Urine Nitrate Urine Bilirubin Urine Urobilinogen Leukocyte Esterase Rfl Urine RBC Urine WBC Ur Squamous Epith Cells Urine Bacteria Urine Casts Post-procedural complaints: none Patient Feedback: Patient satisfied with anesthetic care.
[2025-03-25 08:50] VITALS: PULSE 90
[2025-03-25] MEDS: METOPROLOL SUCCINATE EXT REL 100 MG TABCR PO (08:50)
[2025-03-25] MEDS: SENNA/DOCUSATE SODIUM TABLET 2 TAB PO (08:50)
[2025-03-25] MEDS: metFORMIN HCL XR 500 MG TAB.SR.24H 1000 MG PO (08:50)
[2025-03-25] MEDS: buPROPion HCL XL (24 HR) 150 MG TABCR PO (08:50)
[2025-03-25] MEDS: LOSARTAN POTASSIUM 50 MG TABLET PO (08:50)
[2025-03-25 11:31] VITALS: BP 151/109; PULSE 93; RESP 20; TEMP 36.5; O2SAT 98
[2025-03-25 12:05] VITALS: BP 158/98
--- NOTE | 2025-03-25 12:59 | WPDUROPN2 ---
Progress Note: A&P Assessment and Plan (1) Ureteral calculi: Code(s): N20.1 - Calculus of ureter Status: Acute Assessment and Plan: - Pt is s/p bilateral ureteral stent placement 03/24/2025 for bilateral ureteral stones - Will plan for definitive management with bilateral ureteroscopy with Dr. Canales; crew scheduler to contact patient for scheduling (2) Ureteral stent present: Code(s): Z96.0 - Presence of urogenital implants Status: Acute Assessment and Plan: - Medical management of stent symptoms until OR - Discharge on tamsulosin 0.4 mg QD x 40 days - Discharge on VESIcare 5 mg QD x 40 days - Discharge on pyridium 200 mg TID x 5 days Subjective Subjective Date/Time Seen: 03/25/25 12:59 Interval history: S/p BL ureteral stent placement 03/24/2025. Reporting mild BL upper abdominal pain and urinary urgency. Exam Const: General: comfortable and no acute distress Resp: Effort & Inspection: normal respiratory effort Skin: General skin exam: normal color Neuro: Speech: normal speech Objective Data Vital Signs Vital Signs: Vital Signs - 24 hr 03/24/25 13:48 03/24/25 15:04 03/24/25 15:51 Temperature Pulse Rate 85 83 98 Respiratory Rate 17 15 14 Blood Pressure 193/111 H 192/132 H 158/103 H Pulse Oximetry 99 100 97 Oxygen Delivery Oxygen Flow Rate 03/24/25 16:56 03/24/25 17:38 03/24/25 17:50 Temperature 36.9 C 36.4 C Pulse Rate 96 95 94 Respiratory Rate 16 16 14 Blood Pressure 148/101 H 108/72 111/74 Pulse Oximetry 99 99 99 Oxygen Delivery Simple Face Mask Simple Face Mask Oxygen Flow Rate 8 8 03/24/25 18:05 03/24/25 18:20 03/24/25 18:35 Temperature 36.4 C 36.0 C L Pulse Rate 95 92 90 Respiratory Rate 16 18 16 Blood Pressure 138/97 H 143/91 H 154/96 H Pulse Oximetry 97 96 100 Oxygen Delivery Room Air Room Air Oxygen Flow Rate 03/24/25 18:44 03/24/25 18:50 03/24/25 19:20 Temperature 36.0 C L 36.6 C Pulse Rate 90 86 Respiratory Rate 16 18 Blood Pressure 151/97 H 169/106 H Pulse Oximetry 100 99 Oxygen Delivery Room Air Oxygen Flow Rate 03/24/25 20:00 03/24/25 20:20 03/25/25 04:34 Temperature 36.7 C 36.7 C Pulse Rate 90 86 Respiratory Rate 20 20 Blood Pressure 146/89 H 160/101 H Pulse Oximetry 98 97 Oxygen Delivery Room Air Oxygen Flow Rate 03/25/25 07:57 03/25/25 08:50 03/25/25 08:50 Temperature 36.0 C L Pulse Rate 90 90 Respiratory Rate 18 Blood Pressure 162/110 H Pulse Oximetry 97 Oxygen Delivery Room Air Oxygen Flow Rate 03/25/25 11:31 03/25/25 12:05 Temperature 36.5 C Pulse Rate 93 Respiratory Rate 20 Blood Pressure 151/109 H 158/98 H Pulse Oximetry 98 Oxygen Delivery Oxygen Flow Rate Intake/Output Intake/Output: Intake & Output 03/22/25 03/23/25 03/24/25 03/25/25 23:59 23:59 23:59 23:59 Intake Total 1050 368 Output Total 550 600 Balance 500 -232 Meds/Results Medications: Active Medications Generic Name Dose Route Start Last Admin Trade Name Freq PRN Reason Stop Dose Admin Acetaminophen 650 mg 03/24/25 18:47 Acetaminophen 325 Mg Tablet PO Q4H PRN Mild Pain (1-3) or Fever Hydrocodone Bitart/Acetaminophen 1 tab 03/24/25 18:47 03/25/25 04:40 Hydrocodone/Acetaminophen (*Crx) 5-325 Mg Tablet PO 1 tab Q4H PRN Administration Pain Rated 4-6 Bupropion HCl 150 mg 03/25/25 09:00 03/25/25 08:50 Bupropion Hcl Xl (24 Hr) 150 Mg Tabcr PO 150 mg QAM KATHLEEN Administration Dextrose 12.5 gm 03/24/25 18:46 Dextrose 50% 25 Gm/50 Ml Syringe IV PUSH PRN PRN Hypoglycemia Protocol Fluticasone Propionate 2 spray 03/24/25 21:00 03/25/25 08:55 Fluticasone Propionate 0.05% Na Spr 16 Gm Btl (*Bkc) NASAL Not Given Q12HR KATHLEEN Glucagon 1 mg 03/24/25 18:46 Glucagon For Inj 1 Mg Vial IM PRN PRN Hypoglycemia Protocol Glucose 15 gm 03/24/25 18:46 Glucose Oral Gel 15 Gm Of Glucse In 37.5 Gm Tube PO PRN PRN Hypoglycemia Protocol Dextrose 1,000 mls @ 100 mls/hr 03/24/25 18:46 Dextrose 5% 1,000 Ml IVPB PRN PRN Hypoglycemia Protocol Insulin Aspart 2 - 5 units 03/25/25 08:00 03/25/25 12:32 Insulin Aspart (*Bkc) 100 Units/Ml SUB-Q Not Given TIDWM KATHLEEN Protocol Losartan Potassium 50 mg 03/25/25 09:00 03/25/25 08:50 Losartan Potassium 50 Mg Tablet PO 50 mg DAILY KATHLEEN Administration Metformin HCl 1,000 mg 03/25/25 09:00 03/25/25 08:50 Metformin Hcl Xr 500 Mg Tab.Sr.24h PO 1,000 mg DAILY KATHLEEN Administration Metoprolol Succinate 100 mg 03/25/25 09:00 03/25/25 08:50 Metoprolol Succinate Ext Rel 100 Mg Tabcr PO 100 mg QAM KATHLEEN Administration Morphine Sulfate 2 mg 03/24/25 18:47 Morphine Sulfate (*Crx) 4 Mg/Ml Inj IV PUSH Q4H PRN Pain Rated 7-10 Ondansetron HCl 4 mg 03/24/25 18:47 Ondansetron Inj 4 Mg/2 Ml Vial IV PUSH Q6H PRN Nausea And Vomiting Pravastatin Sodium 20 mg 03/24/25 21:00 03/24/25 20:53 Pravastatin Sodium 20 Mg Tablet PO Not Given HS KATHLEEN Senna/Docusate Sodium 2 tab 03/24/25 21:00 03/25/25 08:50 Senna/Docusate Sodium Tablet PO 2 tab Q12HR KATHLEEN Administration Radiology Results: ITS Impressions Abdomen/Pelvis CT 03/24/25 15:19 IMPRESSION: 1. Bilateral obstructive uropathy Retrograde Pyelogram 03/25/25 12:15 IMPRESSION: 1. Bilateral ureteral stones with interval placement of bilateral internal ureteral stents which are in expected position. It is unclear whether the ureteral stones have been removed and would correlate with procedure note for further detail. ADDENDUM: 03/25/25 0742 CORRECTION: There is a dictation error in the the first sentence of the technique section. This sentence should read- 5 fluoroscopic images of the abdomen and pelvis were obtained during procedure performed by Dr. Grier. Labs Labs: Laboratory Results - last 24 hr 10/11/1103/24/25 03/24/25 13:46 13:58 17:42 WBC 14.9 H RBC 5.75 Hgb 17.2 Hct 48.5 MCV 84.3 MCH 29.9 MCHC 35.5 RDW 11.9 Plt Count 247 MPV 10.0 Immature Gran % (Auto) 0.4 Neut % (Auto) 86.9 H Lymph % (Auto) 7.0 L [place] % (Auto) 5.2 Eos % (Auto) 0.3 Baso % (Auto) 0.2 Lymph # (Auto) 1.05 [place]aden # (Auto) 0.8 H Eos # (Auto) 0.0 Baso # (Auto) 0.0 Abs Immat Gran (auto) 0.06 H Absolute Neuts (auto) 13.0 H Absolute Nucleated RBC 0.000 Nucleated RBC % 0.0 Sodium 135 L Potassium 4.3 Chloride 100 Carbon Dioxide 23 Anion Gap 12 BUN 19 Creatinine 1.19 Estim Creat Clear Calc 65 Estimated GFR > 60 Glucose 156 H POC Capillary Glucose 159 H 123 H Calcium 10.0 Magnesium Total Bilirubin 0.7 AST 30 ALT 28 Alkaline Phosphatase 84 Total Protein 9.0 H Albumin 4.9 Lipase 403 H Urine Color Yellow Urine Appearance Clear Urine pH 5.5 Ur Specific [place] 1.035 Urine Protein Trace Urine Glucose (UA) 3+ H Urine Ketones Trace H Ur Blood (Man) 3+ H Urine Nitrate Negative Urine Bilirubin Negative Urine Urobilinogen 0.2 Leukocyte Esterase Rfl Negative Urine RBC >100 H Urine WBC 0-5 Ur Squamous Epith Cells None seen Urine Bacteria None seen Urine Casts 0-2 03/24/25 03/25/25 03/25/25 22:20 06:23 07:30 WBC 10.6 H RBC 5.20 Hgb 15.7 Hct 44.7 MCV 86.0 MCH 30.2 MCHC 35.1 RDW 11.9 Plt Count 203 MPV 9.9 Immature Gran % (Auto) 0.6 H Neut % (Auto) 67.2 Lymph % (Auto) 22.0 [place] % (Auto) 8.4 Eos % (Auto) 1.3 Baso % (Auto) 0.5 Lymph # (Auto) 2.33 [place] # (Auto) 0.9 H Eos # (Auto) 0.1 Baso # (Auto) 0.1 Abs Immat Gran (auto) 0.06 H Absolute Neuts (auto) 7.1 H Absolute Nucleated RBC 0.000 Nucleated RBC % 0.0 Sodium 136 L Potassium 3.8 Chloride 102 Carbon Dioxide 24 Anion Gap 10 BUN 18 Creatinine 1.02 Estim Creat Clear Calc 69 Estimated GFR > 60 Glucose 125 H POC Capillary Glucose 109 H 123 H Calcium 9.2 Magnesium 2.2 Total Bilirubin 0.7 AST 25 ALT 19 Alkaline Phosphatase 72 Total Protein 7.5 Albumin 4.3 Lipase Urine Color Urine Appearance Urine pH Ur Specific [place] Urine Protein Urine Glucose (UA) Urine Ketones Ur Blood (Man) Urine Nitrate Urine Bilirubin Urine Urobilinogen Leukocyte Esterase Rfl Urine RBC Urine WBC Ur Squamous Epith Cells Urine Bacteria Urine Casts 03/25/25 11:14 WBC RBC Hgb Hct MCV MCH MCHC RDW Plt Count MPV Immature Gran % (Auto) Neut % (Auto) Lymph % (Auto) [place] % (Auto) Eos % (Auto) Baso % (Auto) Lymph # (Auto) [place] # (Auto) Eos # (Auto) Baso # (Auto) Abs Immat Gran (auto) Absolute Neuts (auto) Absolute Nucleated RBC Nucleated RBC % Sodium Potassium Chloride Carbon Dioxide Anion Gap BUN Creatinine Estim Creat Clear Calc Estimated GFR Glucose POC Capillary Glucose 140 H Calcium Magnesium Total Bilirubin AST ALT Alkaline Phosphatase Total Protein Albumin Lipase Urine Color Urine Appearance Urine pH Ur Specific [place] Urine Protein Urine Glucose (UA) Urine Ketones Ur Blood (Man) Urine Nitrate Urine Bilirubin Urine Urobilinogen Leukocyte Esterase Rfl Urine RBC Urine WBC Ur Squamous Epith Cells Urine Bacteria Urine Casts
--- NOTE | 2025-03-26 11:08 | P.DS_ITS ---
DS: Admitting Diagnosis Discharge Date 03/25/25 Admitting Diagnosis Urologic stent placement DS: Discharge Diagnosis Discharge Diagnosis (1) Acute bilateral obstructive uropathy: Code(s): N13.9 - Obstructive and reflux uropathy, unspecified Status: Acute Assessment and Plan: -Left ureteral obstruction with multiple ureteral stones and severe hydronephrosis -Right mid pole/upper ureteral obstruction with developing hydronephrosis -No UTI but hematuria and dysuria present per patient report -Bilateral ureteral stents placed by Urology in OR on 03/23/25--Emergent procedure due to bilateral obstruction -Repeat labs in AM -Patient states Urology expects to discharge in AM with outpatient stone extraction when stents removed 03/25: Discharge per uro, f/u outpt. Pt continues to deny pain. 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 03/25: Pain free. To f/u with uro. (3) Constipation: Code(s): K59.00 - Constipation, unspecified Status: Acute Assessment and Plan: -Constipated despite Colace for 3 days and Senna yesterday -Add Senna Plus and one time dose of magnesium citrate 03/25: Pt states that he had a BM today. Continue bowel regimen at home. (4) Type 2 diabetes mellitus with hyperglycemia: Qualifiers: Diabetes mellitus fpc insulin use: without fpc use Qualified Code(s): E11.65 - Type 2 diabetes mellitus with hyperglycemia Code(s): E11.65 - Type 2 diabetes mellitus with hyperglycemia Status: Chronic Assessment and Plan: -continue metformin -diabetic diet -ACHS fingerstick glucose with low dose SSI -Hemoglobin A1c 6.3 on 02/16/2503/25: Blood sugars conntinue to be stable. Continue home regimen upon discharge. (5) Essential (primary) hypertension: Code(s): I10 - Essential (primary) hypertension Status: Chronic Assessment and Plan: -continue metoprolol and losartan 03/25: Pt BP has be high steaily while inpatient and reporting no pain (130-160/90-110's). Increased losartan from 50mg to 75mg (added 25mg) daily with PCP follow-up outpatient. (6) HLD (hyperlipidemia): Qualifiers: Hyperlipidemia type: mixed hyperlipidemia Qualified Code(s): E78.2 - Mixed hyperlipidemia Code(s): E78.5 - Hyperlipidemia, unspecified Status: Chronic Assessment and Plan: -continue pravastatin, f/u outpatient with PCP. Plan D/C today with uro f/u outpatient. Increase Losartan 50mg to 75mg due to HTN inpatient. DS: Summary Hospital Course Reason for hospitalization: Urologic stent placement Hospital Course: Jocelynn is a 64 year old male patient with a history of recurrent nephrolithiasis who presents with bilateral flank pain. The patient reports to the ED on 03/24 with pain that started on 03/21. The pain initially resolved but returned with severe intensity at approximately 4 a.m.on 03/24, prompting his presentation to the hospital. He describes the pain as bilateral, but predominantly on the L side. He denies any nausea or vomiting. He also reports significant constipation, which he associates with his Mounjaro medication for diabetes, and has been taking stool softeners and Senna since 03/21 without relief. Workup revealed bilateral ureteral stones with obstruction and hydronephrosis, worse on the left side with multiple stones throughout the course of the left ureter. He has since undergone emergent bilateral ureteral stent placement by the Urology service in the OR on 03/23. He reports his flank pain is now gone. Pt to be discharged with an increase on his losartan, 50mg to 75mg (wrote for 25mg due to pt having a good supply of rx 50mg at home) due to HTN inpatient, despite being pain free. Pt also to f/u with uro outpatient for definitive management with bilateral ureteroscopy with Dr. Canales. Uro also wrote for home rx of tamsulosin 0.4mg daily and solifenacin 5mg daily. Pt to continue his bowel regimen at home to prevent constipation. Status at Discharge Functional status at discharge: independent ambulation Overall status at discharge: patient is progressing back to baseline Time Spent with Patient Time attestation: Total time spent providing and/or coordinating discharge services: 35 Exam Const: General: comfortable and no acute distress HENMT: Face/Nose/Sinus: Normal nares present Mouth: Yes moist mucous membranes Eyes: General: appearance normal, both eyes and all related structures Sclera: sclerae normal Neck: Neck: supple Carotids: no bruits Resp: Effort & Inspection: normal respiratory effort Auscultation: clear to auscultation bilaterally Cardio: Rate: regular rate Rhythm: regular rhythm GI: Inspection: non-distended GI Palp: Yes Soft to palpation and No Tenderness to palpation present (GI) Auscultation: normal bowel sounds : Other: No TTP CVA bilaterally Skin: General skin exam: normal color and no rashes or lesions noted Neuro: General: gait normal Motor exam (neuro): Normal motor muscle tone present throughout Sensory Exam: normal sensation Extrem: General: normal to inspection Psych: Mental Status: mental status grossly normal Affect: normal affect DS: Data Data Completed and Pending Completed studies during hospitalization: Labs, urine, A/P CT Labs on day of discharge: Labs from last 24 hours 03/25/25 11:14 POC Capillary Glucose 140 H Procedures/Treatments: Urogram Imaging Radiologist's impression: A/P CT: IMPRESSION: 1. Bilateral obstructive uropathy Discharge Plan Discharge Attending physician on discharge: Gualberto Monge Consulting providers: Brandon Grier; Tiffanie Monroy; Tj Caba; Brandon Crowley; Fazal Vasquez; Gino Ayala; Kelvin Lopez; Delroy Howard Discharging Clinician: Tiffanie Monroy Anticipated Discharge Date/Time: 03/25/25 15:00 Patient Disposition: Home Activity: may shower Diet: as tolerated Discharge Instructions: 1. Follow-up with urologist as discussed with them, their contact info is attached. --> Will plan for definitive management with bilateral ureteroscopy with Dr. Canales; dental surgery doctor to contact patient for scheduling 2. I am increasing your Losartan (BP medication) from 50mg to 75mg due to your consistent high blood pressures, follow-up with your primary care provider in June as scheduled Continue to check your blood pressure and blood sugar at home if applicable. Keep your scheduled appts with your primary care provider and any specialist that you may see. Return to the emergency department if you develop sudden shortness of breath, chest pain, a fever of greater than 101.5, or nausea, vomiting, abd pain, or diarrhea that does not go away. Follow-up with your primary care provider within 1-2 weeks, they will want to be updated on your inpatient stay in the hospital. Thank you for choosing [facility] for your healthcare needs. Patient Instructions: Antibiotic Form, Kidney Stones (DC) Patient Language: Romansh Stand Alone Forms: General Discharge Information Follow-up/Referrals: Corbin Wallace MD [Primary Care Provider, Family Practice] - 2 Weeks Gino Ayala PA [Physician Language Interpreter, Urology] - 1 Week Manav Canales MD [Physician, Urology] - 1 Week Discharge Medications: New losartan 25 mg tablet 25 mg PO DAILY Qty: 90 0RF tamsulosin 0.4 mg capsule 0.4 mg PO DAILY Qty: 40 0RF solifenacin 5 mg tablet 5 mg PO DAILY Qty: 40 0RF Continued metformin 500 mg tablet extended release 24 hr 1,000 mg PO DAILY Qty: 360 2RF pravastatin 20 mg tablet See Rx Instructions .ROUTE .COMPLEX Qty: 90 3RF Dose Instruction: TAKE 1 TABLET BY MOUTH EVERYDAY AT BEDTIME Rx Instructions: TAKE 1 TABLET BY MOUTH EVERYDAY AT BEDTIME tirzepatide 10 mg/0.5 mL pen injector 10 mg subcut WEEKLY Qty: 6 1RF Patient Comments: takes on Tuesday fluticasone propionate 50 mcg/actuation spray,suspension 2 spray intranasal DAILY Qty: 16 3RF Rx Instructions: administer into each nostril bupropion HCl 150 mg tablet extended release 24 hr See Rx Instructions .ROUTE .COMPLEX Qty: 90 2RF Dose Instruction: TAKE 1 TABLET BY MOUTH EVERY DAY IN THE MORNING Rx Instructions: TAKE 1 TABLET BY MOUTH EVERY DAY IN THE MORNING losartan 50 mg tablet 50 mg PO DAILY Qty: 90 2RF metoprolol succinate 100 mg tablet extended release 24 hr See Rx Instructions .ROUTE .COMPLEX Qty: 90 2RF Dose Instruction: TAKE 1 TABLET BY MOUTH EVERY DAY Rx Instructions: TAKE 1 TABLET BY MOUTH EVERY DAY No Action vitamins [id number] 2.5 mg-2.5 mg- 5 mg-100 mcg tablet 1 tablet PO DAILY Date of admission: 03/24/25 15:26 Primary Care Provider: Corbin Wallace Admitting Provider: Eriberto Michele Attending physician on admission: Eriberto Michele Condition: Stable Quality VTE Prophylaxis VTE prophylaxis: mechanical ordered Hospitalist MIPS Heart Failure (Exclusion) Patient has history of Heart Transplant or Left Ventricular Assistive Device?: No IF YES, STOP HERE Heart Failure (Qualifier) Patient has current or prior documentation of LVEF less than or equal to 40%, or mod/servere depressed LVSF?: No IF NO, STOP HERE
== END 2025-03-25 14:20 | disposition home or self-care (01) ==
LOC: ANHED 15:37 → ANH3MEDSUR 15:59
PROVIDERS: Emergency Medicine; Nurse Practitioner; Urology; Admitting Provider Internal Medicine; Emergency Provider Emergency Medicine; PCP Family Medicine; Visit Provider Internal Medicine
PROC: (CPT 52352; principal; 2025-03-24 17:00)
DX: N13.2 Hydronephrosis with renal and ureteral calculous obstruction (principal); N23 Unspecified renal colic; K59.00 Constipation, unspecified; E11.65 Type 2 diabetes mellitus with hyperglycemia; I10 Essential (primary) hypertension; E78.5 Hyperlipidemia, unspecified; Z83.3 Family history of diabetes mellitus; Z87.891 Personal history of nicotine dependence; Z79.84 Long term (current) use of oral hypoglycemic drugs; Z79.85 Long-term (current) use of injectable non-insulin antidiabetic drugs
CPT/HCPCS: 52332; 36415; 74176; 74420; 80053; 81001; 82948; 83690; 83735; 85025; 96361; 96365; 96375; 99285; A9270; C1758; C1769; C2617; G0378; J0330; J0696; J1171; J1885; J2003; J2270; J2405; J2704; J3010; J7120; Q9966

== ENCOUNTER 2025-04-01 11:56 | Outpatient (CLI) | payer OTHER, SELFPAY ==
--- NOTE | 2025-04-01 12:05 | ECG_ITS ---
Test Date: 2025-04-01 12:12:11 Measurements Intervals [place] Rate: 96 P: 26 SD: 200 QRS: 10 QRSD: 69 T: 31 QT: 330 QTc: 419 Interpretive Statements SINUS RHYTHM CANNOT R/O SEPTAL INFARCT, AGE INDETERMINATE BASELINE ARTIFACT- I, II, III, AVR, AVL, AVF ABNORMAL ECG No previous ECG available for comparison Electronically Signed On 04-01-2025 15:51:04 CDT by Toni Navarrete D.O.
--- OUTSIDE RECORDS SUMMARY | 2025-04-01 13:09 | XMS_ITS | Clinical Summary ---
Author Organization [facility] [employer] Address [address] [place] [address] Care Team Providers Care Research Asst Name Role Phone Alanna Grove MD Primary Care Provider Source Comments [facility] [employer],non-owned Affiliates and Associated Physician Practices is amultiple site organization consisting of ambulatory clinics and hospital sitesin [place], [place], [place]. This disclosure is being madepursuant to the Care Everywhere program and may not contain all information available regarding this patient. 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 The modifications have not been cleared or approved by the FDA. This assay has been validated pursuant to the CLIA regulations and is used for clinical purposes. This test was performed using the ASMITA(R)AmpliPrep/ ASMITA(R)TaqMan(R)HCV Test,v2.0. For more information on this test, go to: http://education.linkedFA/faq/MIM20c3 (This link is being provided for informational/ educational purposes only.) Test Performed at: [facility] [address] [place] [address] EVA BYRNES DO,MPH 11/20/2016 11:1 8 AM CDT 11/20/2016 11:18 AM CDT us Nadja Urbina PA-C LAB - SEROLOGY ORDERABLES Final Result YOB[facility] (U) [phone] from Last 3 Months or Most Recently Relevant to Health Maintenance Insurance ZACH[employer] Care Teams Research Asst Relationship Specialty Start Date End Date Alanna Grove MD [address] [place] [address] PCP - General 01/17/18
--- OUTSIDE RECORDS SUMMARY | 2025-04-01 13:09 | XMS_ITS | Clinical Summary ---
Author Organization [facility] Address [address] [place] [address] Phone Care Team Providers Care Data Integration Architect Name Role Phone Unavailable Primary Care Provider [...] series) 2020 INFLUENZA VACCINE (#1) 2025 Insurance [facility] BLUE ACCESS/TRUE BLUE PPO
== END 2025-04-01 11:57 | disposition home or self-care (01) ==
LOC: ANHSURGERY 12:01
PROVIDERS: PCP Family Medicine; Visit Provider Urology
DX: R94.31 Abnormal electrocardiogram [ECG] [EKG] (principal); N20.1 Calculus of ureter; I10 Essential (primary) hypertension
CPT/HCPCS: 87086; 93005

== ENCOUNTER 2025-04-09 00:58 | Day surgery (SDC) | payer OTHER, SELFPAY ==
--- NOTE | 2025-03-29 14:00 | SUR.PREOP ---
[facility] has started construction of its new state of the art ER which will open Spring 2026. With this, we anticipate parking may be a challenge for some our surgical patients and families. Parking spaces are limited but are available for all Surgical, obstetrics, and ER patients sharing this lot. If you arrive and find you are having a hard time finding a parking space, please note that we understand the challenges, please drive around the hospital and park near Hospital Entrance 1. When you enter this entrance, you can ask a volunteer to direct or take you back to the surgical waiting area to check in. We appreciate everyone?s understanding of these expected challenges while we build for your future. Report to the Outpatient Waiting Room, entrance under the green pavilion located off [address], at time _10am___ on date _04/09/25____. Planned Procedure Time: _12pm___.? Time changes happen often and if your time is changed the preop area will call you the afternoon before. - You and your visitor will be asked to self-screen and do not enter if you have any COVID symptoms. Please call surgeon if you need to reschedule. - A mask is optional within the hospital at this time. Patients may have clear liquids (water, carbonated beverages, clear teas, apple juice) until 3 hours prior to surgery with a maximum of 20 ounces. - No food from midnight until time of surgery and no smoking, or chewing tobacco (or any form of nicotine). No chewing gum, candy or mints. Take only the following medications with a SIP of water on the morning of surgery: _bupropion,metoprolol DO NOT STOP ANY OF YOUR OTHER PRESCRIPTION MEDICATIONS PRIOR TO SURGERY EXCEPT THE FOLLOWING Hold all vitamins and supplements for 3 days per anesthesiologist. Medications to discontinue per physician None Date to take last dose of Multivitamins___04.05.25 Please no make-up, nail kiswahili, hairspray, perfume, deodorant, or body powder the day of surgery.? No jewelry (including any body piercings) or valuables the day of surgery, leave them at home.? Please take a shower or bath the night before, or the morning of, surgery with an antibacterial soap.? Wear comfortable, loose fitting clothing.? - Jewelry must be removed prior to entering the operating room.? Rings and piercings that are not removed may be cut off. - The hospital will not accept responsibility for valuables.? - Please leave all valuables, including medications, at home the day of surgery. If you are going home after surgery, a licensed cdl a driver must drive you home.? - NO public transportation without another adult if you receive anesthesia. - We recommend that an adult stay with you for 24 hours following discharge. - We also recommend that you do not drive, make important decision, drink alcoholic beverages, or take any drugs that were not prescribed by your health care provider for at least 24 hours after your discharge time. For Pediatric surgeries, we recommend two adults accompany the child home. Follow any additional instructions given to you from your surgeon. Telephone instructions given to _Michelle Arthur__and asked if any additional questions and then verbalized understanding. Patient advised to call surgeon office or pre surgery nurse liaison [phone] if any additional questions.
[2025-03-29 14:20] VITALS: BMI 30.7
[2025-04-09] VITALS (10 sets, daily range): BP systolic 114–168; BP diastolic 81–106; PULSE 80–102; RESP 12–20; TEMP 36.1–36.8; O2SAT 95–99; BMI 29.0
--- NOTE | ~2025-04-09 | XR_ITS ---
EXAMINATION: XR retrograde pyelo w/stent BI DATE: 04/09/2025 13:32 INDICATION: Bilateral internal ureteral stent placement TECHNIQUE: Fluoroscopic images from a bilateral internal ureteral stent placement are submitted for review. 59 seconds of fluoroscopy time. FINDINGS: There are bilateral double-J internal ureteral stent projecting in expected position, with proximal [place] loop at the level of the renal pelvis and distal loop in the pelvis within the bladder lumen. IMPRESSION: 1. Bilateral internal ureteral stent placement. Please refer to real-time procedural findings for details. Reviewed, dictated and finalized at location O. IMPRESSION: 1. Bilateral internal ureteral stent placement. Please refer to real-time proc edural findings for details.
--- NOTE | 2025-04-09 10:53 | WPDHPUPDATE1 ---
History and Physical Update Update Date/Time: 04/09/25 10:53 History and Physical has been reviewed, including an updated exam of the patient. There are NO changes in the patient's condition. Risks, benefits, and alternatives have been discussed and questions answered. Patient agrees to proceed with procedure.
--- NOTE | 2025-04-09 10:54 | PM.HPGS ---
History of Present Illness History of Present Illness Consent: Risks, benefits, and alternatives have been discussed and questions answered. Patient agrees to proceed with procedure. Chief complaint: bilat ureteral and renal stones Narrative: Wilfred Rico is a 64 year old male with history of urolithiasis who recently underwent bilateral ureteral stent placement on 03/24/2025 with my colleague. Patient presents today for definitive endoscopic management of his bilateral urinary tract stones. He denies any changes masses baseline and is ready for the procedure today. Review of Systems Review of Systems: All systems reviewed & are unremarkable except as noted in HPI and below PMFSH Past Medical History Medical History History of angioedema HLD (hyperlipidemia) Diabetes mellitus Family History Family History Grandparent Diabetes mellitus Sibling Diabetes mellitus Father Depression Family history of suicide, Onset Age: 25 Mother Patient's mother is in good health Social History Social History Smoking packs per day: 1 Smoking cigarettes per day: 20.0 Years smoked: 15 Smoking pack-years: 15.00 Smoking status: Former smoker Tobacco type: cigarettes Alcohol intake: current Drinks per week: 3 Substance use: never Substance use type: does not use Do You Feel Safe in your Home?: Yes Lack of Transportation: No Lack of Food: Never True Current Housing: I Have Housing Concerned About Future Housing: No Difficulty Paying Gas/Electric Bills: No Difficulty Paying for Meds: No Currently Unemployed: No Education: High School Diploma/GED Difficulty w/ Childcare or Family Care: No Living arrangements: alone Occupation/Education: occupation Gender identity (if verbalized by the patient): Male Sexual Orientation (if Verbalized by the Patient): Straight or Heterosexual Spiritual care concerns: No Meds Home Medications and Allergies Home Medications ?Medication ?Instructions ?Recorded ?Confirmed ?Type fluticasone propionate 50 2 spray intranasal DAILY #16 grams 03/21/23 03/29/25 Rx mcg/actuation nasal spray,suspension bupropion HCl 150 mg 24 hr tablet, See Rx Instructions .Route 08/10/24 03/29/25 Rx extended release .COMPLEX #90 tabs losartan 50 mg tablet 50 mg PO DAILY #90 tabs 08/10/24 03/29/25 Rx metformin 500 mg tablet,extended 1,000 mg (2 x 500 mg) PO DAILY 08/10/24 03/29/25 Rx release 24 hr #360 tabs metoprolol succinate 100 mg See Rx Instructions .Route 08/10/24 03/29/25 Rx tablet,extended release 24 hr .COMPLEX #90 tabs pravastatin 20 mg tablet See Rx Instructions .Route 08/10/24 03/29/25 Rx .COMPLEX #90 tabs tirzepatide 10 mg/0.5 mL 10 mg (0.5 mL) subcut WEEKLY #6 mL 03/01/25 03/29/25 Rx subcutaneous pen injector losartan 25 mg tablet 25 mg PO DAILY #90 tabs 03/25/25 03/29/25 Rx solifenacin 5 mg tablet 5 mg PO DAILY ureteral stent, 03/25/25 03/29/25 Rx urinary symptoms #40 tabs tamsulosin 0.4 mg capsule 0.4 mg PO DAILY ureteral calculi, 03/25/25 03/29/25 Rx ureteral stent #40 caps vitamins B1 2.5 mg-B2 2.5 1 tablet PO DAILY 03/29/25 03/29/25 History mg-niacin 5 mg-B12 100 mcg-protease tablet Allergies Allergy/AdvReac Type Severity Reaction Status Date / Time hydrochlorothiazide Allergy Unknown cough/lip Verified 03/29/25 14:04 (Zestoretic) swelling lisinopril Allergy Unknown cough/lip Verified 03/29/25 14:04 swelling Exam Const: General: no acute distress and alert HENMT: Head: normocephalic and atraumatic Eyes: Pupils: Equal, round and reactive pupils present EOM: EOMs intact bilaterally Neck: Neck: normal visual inspection and full ROM Chest: Chest palpation & inspection: normal inspection of the chest Resp: Effort & Inspection: normal respiratory effort and no audible wheezes Cardio: Rate: regular rate GI: Inspection: normal to inspection and non-distended : General: Yes deferred Skin: General skin exam: normal color and no rashes or lesions noted Neuro: General: patient oriented x3 Extrem: General: normal to inspection and full ROM Psych: Mental Status: mental status grossly normal Assessment and Plan Assessment and plan (1) Nephrolithiasis: Code(s): N20.0 - Calculus of kidney Status: Acute Assessment and Plan: 64-year-old male with bilateral ureteral and kidney stones status post placement of bilateral ureteral stent on 03/24/2025 (2) Ureteral calculi: Code(s): N20.1 - Calculus of ureter Status: Acute Assessment and Plan: 64-year-old male with bilateral ureteral and kidney stones status post placement of bilateral ureteral stent on 03/24/2025 Plan - To OR for cystoscopy, bilateral retrograde pyelograms, bilateral ureteroscopy, laser lithotripsy, stone basket extraction, and bilateral ureteral stent exchange - Risks, benefits, alternatives reviewed with the patient. He is amenable to proceed - Anticipate discharge home following his surgery today
[2025-04-09] MEDS: LACTATED RINGERS 1,000 ML 30 ML IV CONT ×2 (11:45→13:36)
--- NOTE | 2025-04-09 11:51 | P.PNAN_ITS ---
Anes - Initial Pre Proc Eval Procedure: Operation Date: 04/09/25 12:00 Proposed Procedures p Cystoscopy, Bilateral Retrograde Pyelogram, Ureteroscopy, Laser Lithotripsy, Stone Basket Extraction, Bilateral Ureteral Stent Exchange - Manav Canales MD Date/Time: 04/09/25 11:51 Surgeon: Manav Canales MD Pre Op Diagnosis: bilat ureteral and renal stones Patient Data Age: 64 Gender: M Height: 1.8 m Weight: 94.5 kg Last Vital Signs Temp 36.1 C L 04/09/25 10:30 Pulse 102 H 04/09/25 10:30 BP 132/89 04/09/25 10:30 Pulse Ox 99 04/09/25 10:30 O2 Del Method Room Air 04/09/25 10:30 Allergies Allergy/AdvReac Type Severity Reaction Status Date / Time hydrochlorothiazide Allergy Unknown cough/lip Verified 03/29/25 14:04 (Zestoretic) swelling lisinopril Allergy Unknown cough/lip Verified 03/29/25 14:04 swelling Home Medications ?Medication ?Instructions ?Recorded ?Confirmed ?Type fluticasone propionate 50 2 spray intranasal DAILY #16 grams 03/21/23 03/29/25 Rx mcg/actuation nasal spray,suspension bupropion HCl 150 mg 24 hr tablet, See Rx Instructions .Route 08/10/24 04/09/25 Rx extended release .COMPLEX #90 tabs losartan 50 mg tablet 50 mg PO DAILY #90 tabs 07/2203/29/25 Rx metformin 500 mg tablet,extended 1,000 mg (2 x 500 mg) PO DAILY 08/10/24 03/29/25 Rx release 24 hr #360 tabs metoprolol succinate 100 mg See Rx Instructions .Route 08/10/24 04/09/25 Rx tablet,extended release 24 hr .COMPLEX #90 tabs pravastatin 20 mg tablet See Rx Instructions .Route 0 08/10/24 03/29/25 Rx .COMPLEX #90 tabs tirzepatide 10 mg/0.5 mL 10 mg (0.5 mL) subcut WEEKLY #6 mL 03/01/25 03/29/25 Rx subcutaneous pen injector losartan 25 mg tablet 25 mg PO DAILY #90 tabs 10/0 12/1203/29/25 Rx solifenacin 5 mg tablet 5 mg PO DAILY ureteral stent , 10/06/25 10/10/25 Rx urinary symptoms #40 tabs tamsulosin 0.4 mg capsule 0.4 mg PO DAILY ureteral willian culi, 03/25/25 03/29/25 Rx ureteral stent #40 caps vitamins B1 2.5 mg-B2 2.5 1 tablet PO DAILY 03/29/25 1 History mg-niacin 5 mg-B12 100 mcg-protease tablet Laboratory Tests 04/09/25 10:21 POC Capillary Glucose 125 H mg/dl (65-105) Patient hx anesthesia problems: none Family hx anesthesia problems: none Results Review: All pre-operative results and documents have been reviewed as part of the pre- operative evaluation. [facility] Past Medical History Medical History History of angioedema HLD (hyperlipidemia) Diabetes mellitus Family History Family History Grandparent Diabetes mellitus Sibling Diabetes mellitus Father Depression Family history of suicide, Onset Age: 25 Mother Patient's mother is in good health Social History Social History Smoking packs per day: 1 Smoking cigarettes per day: 20.0 Years smoked: 15 Smoking pack-years: 15.00 Smoking status: Former smoker Tobacco type: cigarettes Alcohol intake: current Drinks per week: 3 Substance use: never Substance use type: does not use Do You Feel Safe in your Home?: Yes Lack of Transportation: No Lack of Food: Never True Current Housing: I Have Housing Concerned About Future Housing: No Difficulty Paying Gas/Electric Bills: No Difficulty Paying for Meds: No Currently Unemployed: No Education: High School Diploma/GED Difficulty w/ Childcare or Family Care: No Living arrangements: alone Occupation/Education: occupation Gender identity (if verbalized by the patient): Male Sexual Orientation (if Verbalized by the Patient): Straight or Heterosexual Spiritual care concerns: No Anes - Eval Final PreProcedure Day of Procedure 04/09/25 11:51 Patient weight: obese Heart: regular rate and rhythm Lungs: clear to auscultation Airway: Mallampati scale class II Neurological: alert and oriented Last oral intake: >/= 8 hours ASA classification: III Emergent: no Anesthetic plan: proceed Anesthesia type and monitoring: general LMA and standard monitoring Results Review: All pre-operative results and documents have been reviewed as part of the pre- operative evaluation. Informed Consent: The patient's anesthetic plan and its attendant risks and benefits were discussed with the patient/family/POA. Questions were solicited and answers provided to the satisfaction of the patient/family/POA.
[2025-04-09] MEDS: ceFAZolin 2 GM in SODIUM CHLORIDE 0.9% IV 50 ML 100 ML IVPB (11:55)
--- NOTE | 2025-04-09 13:27 | S_PTH ---
PATIENT: Wilfred Rico LOC: [facility] U#:[id number] AGE/SX: 64/M ROOM: RE04/09/[address]: Manav Canales MD : [id number] BED: DIS: 04/09/2025 SPEC #: [id number] RECD: 04/10/25 10:40 STATUS: CANDY REQ #: [id number] LON: 04/09/25 13:[address]: Manav Canales DEPT: [facility] Surgical RECD BY: Nichole Webber ENTERED: 04/10/25 10:42 SP TYPE: Surgical OTHR DR: Corbin Wallace MD Tissues: A - Stone Procedures: Gross Exam Level 1 Crystalline Analysis
--- NOTE | 2025-04-09 13:55 | P.OP_ITS ---
Procedure Note - Detailed Date of Procedure 04/09/25 Pre-op Diagnosis bilateral ureteral and renal stones Post-op Diagnosis Same Procedure Performed 1. Cystoscopy 2. Bilateral retrograde pyelograms with intraoperative interpretation 3. Bilateral ureteroscopy 4. Laser lithotripsy 5. Stone basket extraction 6. Bilateral ureteral stent exchange Surgeon Manav Canales MD Anesthesia General Findings 1. Modifier 22 -- please note that this surgery involved significantly more time, technical difficulty, and mental effort than is typically involved for this type of procedure given the patient's large kidney stone burden which exceeded over 2.5 cm in total 2. Cystourethroscopy revealed a short annular bulbar urethral stricture measuring approximately 22 [place] in caliber which was gently dilated navigated past with the rigid cystoscope. Patient had moderate lateral lobe hyperplasia with an elevated bladder neck. Orthotopic ureteral orifices bilaterally with appropriately positioned bilateral ureteral stents. No suspicious lesions, tumors, stones, or active bleeding in the lower urinary tract. 3. Left retrograde pyelogram using a 50 50 mixture of contrast and saline showed filling defect in the left distal and proximal ureter without hydronephrosis or contrast extravasation 4. Left ureteroscopy and renal endoscopy revealed a 6 mm left distal ureteral stone and a 5 mm left proximal ureteral stone. There is also a smaller 3 mm stone in the left kidney. All of the stones were fragmented into sub 1 mm fragments using a laser and any larger fragments were retrieved with a basket 5. Successful left ureteral stent exchange without strings attached 6. Right retrograde pyelogram using a 50 50 mixture of contrast and saline showed a filling defect in the right proximal ureter without hydronephrosis or contrast extravasation 7. Right ureteroscopy intrarenal endoscopy revealed a 6 mm right proximal ureteral stone as well as a 6 mm right renal stone. All of the stones were fragmented into sub 1 mm fragments using a laser and any larger fragments were retrieved with a basket 8. Successful right ureteral stent exchange without strings attached Description of Procedure After informed consent had been obtained, the patient was brought back to the operative theater and placed supine position on the operating table or upon its use was induced. He was placed in the dorsal lithotomy position all pressure points were padded. Sequential compression devices were on and noted to be functional. Preoperative antibiotics were administered. Patient was prepped and draped in a sterile fashion for an endoscopic case. A formal time-out was performed to confirm the correct patient, site, and procedure all were in agreement to proceed. To begin with, atraumatically advanced a 22 [place] rigid cystoscope transurethrally in the patient's bladder with findings as noted above. I turned my attention the left ureteral orifice from which was seen emanating the patient's existing left ureteral stent in appropriate position. Alongside the stent I advanced a Sensor wire up the left ureter. Over top the wire I passed a 5 [place] open-ended catheter to the level of left distal ureter and removed the Sensor wire; a left-sided retrograde pyelogram was performed using a 50 50 mixture of contrast and saline with findings as noted above. I then replaced a Sensor wire through the open-ended catheter to the level of left kidney under fluoroscopy. Using a Seldinger maneuver the 7 through wire was left in place while the open-ended catheter was removed. I then used flexible alligator graspers to retrieve the existing left ureteral stent. Sensor wire was secured to the drapes with a hemostat. I then inserted a semi rigid ureteroscope transurethrally the patient's bladder attention drawn to left ureteral orifice. I advanced a 2nd, safety Glidewire up the left ureter into the left kidney under fluoroscopy. I then guided the ureteroscope between the 2 wires and performed left ureteroscopy. I encountered a 6 mm stone left distal ureter which was successfully fragmented using a 200 micron Horace laser. Any larger fragments were retrieved with a ZeroTip Nitinol basket and deployed in the bladder for later collection. I then advanced the ureteral scope to the left proximal ureter were a 2nd 5 mm stone was encountered. This stone was treated in similar fashion as the aforementioned stone. I then replaced the Glidewire through the semi-rigid ureteral scope then removed this scope. Next, I advanced a 11/13 [place] 36 cm ureteral access sheath over top of the Glidewire and under direct fluoroscopic guidance I advanced this to the level of the left shock small ureter. The inner sheath was removed and I advanced a digital flexible ureteral scope through the outer sheath and performed left renal endoscopy with findings as noted above. Notably, there is a 3 mm stone in the left kidney which was successfully treated using the laser fiber. Afterwards I performed another left-sided retrograde pyelogram in order to delineate the left collecting system in anticipation of stent placement. I then performed pullback ureteroscopy while simultaneously removing the access sheath and noted no significant ureteral injury nor stones. Next, I backloaded the cystoscope onto the Sensor wire which was advanced transurethrally in the bladder attention on the left ureteral orifice. Over top of the wire I passed a 6 [place] variable length double-J stent used the pusher to deploy the stent placed, confirming good proximal curl left kidney under fluoroscopy and a good distal curl bladder under direct cystoscopic vision. Next, I turned my attention to the right ureteral orifice and in the exact same fashion as the left hand side, I performed a right-sided retrograde pyelogram with findings as noted above. I then removed the right-sided stent in similar fashion to the left hand side. I then advanced a semi-rigid ureteroscope up the right ureter and encountered a 6 mm stone in the right proximal ureter. The stone was treated with the laser fiber and any larger fragments were retrieved with ZeroTip Nitinol basket deployed in the bladder for later collection. In the exact same fashion as left-hand side, I then advanced a ureteral access sheath to the right ureter and using a flexible digital ureteroscope I performed right renal endoscopy. There was a 6 mm stone in the lower right kidney which was successfully treated using a laser fiber. Afterwards, I performed a right- sided retrograde pyelogram through the ureteral scope in order to delineate the right collecting system in anticipation of stent placement. I then performed pullback ureteroscopy while simultaneously removing the access sheath and noted no significant ureteral injury nor stones. Next, I backloaded the cystoscope onto the Sensor wire which was advanced transurethrally in the bladder attention on the right orifice. Over top of the wire I passed a 6 [place] variable length double-J stent used the pusher to deploy the stent placed, confirming good proximal curl right kidney under fluoroscopy and a good distal curl in the bladder under direct cystoscopic vision. Fluoroscopic films were taken as well of the bladder to demonstrate appropriate distal curls. I then flushed out the stone fragments which were collected as a specimen to be sent for kidney stone analysis and emptied the patient's bladder and removed the cystoscope, essentially concluded the case. The patient tolerated the procedure well and there were no immediate complications noted. He was awoken from anesthesia and taken to the recovery in a stable condition. At the conclusion of case all sponge, instrument, and sharp counts were correct x2. Disposition: Patient will be monitored in usual joint flank PACU protocol. He will follow-up in 1-2 weeks for office cystoscopy and bilateral ureteral stent removal. Patient's daughter was provided with an update following the surgery all questions were answered to her satisfaction at the conclusion of our discussion.
[2025-04-09] MEDS: fentaNYL CITRATE INJ (*CRX) 100 MCG/2 ML VIAL 25 MCG IV PUSH ×4 (14:08→14:18)
[2025-04-09] MEDS: HYOSCYAMINE SULFATE 0.125 MG TABLET PO (14:25)
[2025-04-09] MEDS: oxyCODONE HCL (*CRX) 5 MG TAB IR PO (14:47)
== END 2025-04-09 16:12 | disposition home or self-care (01) ==
PROVIDERS: PCP Family Medicine; Visit Provider Urology
PROC: (CPT 52352; principal; 2025-04-09 12:00)
DX: N20.2 Calculus of kidney with calculus of ureter (principal); E11.9 Type 2 diabetes mellitus without complications; Z87.891 Personal history of nicotine dependence
CPT/HCPCS: 52356; 74420; 82365; 82948; 88300; J0690; A9270; C1758; C1769; C1894; C2617; J0360; J2003; J2250; J2371; J2405; J2704; J3010; J7120; Q9966